=== PATIENT | female | born 1950 | race Caucasian/White ===

== ENCOUNTER 2016-04-20 00:26 | Emergency (ER) | payer OTHER ==
--- NOTE | 2016-04-20 00:28 | PDOC ---
History of Present Illness - History of Present Illness Initial Comments: 04/20/16 00:52 Patient is a 65 year old female with significant medical hx of HTN and diabetes who is presenting to the ED with chronic left shoulder pain. Patient states she' s had chronic left shoulder pain for years that's been diagnosed as tendonitis; she is schedule for surgery this upcoming at [facility]. Her pain radiates from her left shoulder down her left arm. The patient reports she stopped taking her pain medication because they were no longer providing relief. She came to the ED tonight for pain management. Surgical Hx: 2 knee replacements, appendectomy, left mastectomy - General Stated Complaint: L SHOULDER PAIN Time Seen by Provider: 04/20/16 00:28 Past History - Past Medical History Allergies/Adverse Reactions: Allergies Allergy/AdvReac Type Severity Reaction Status Date / Time No Known Allergies Allergy Verified 04/20/16 00:41 Home Medications: Ambulatory Orders Metoprolol Succinate [Toprol Xl] 25 mg PO DAILY 04/20/16 Sitagliptin Phosphate [Januvia] 0 mg PO DAILY 04/20/16 Review of Systems - Review of Systems Comments:: 04/20/16 00:55 CONSTITUTIONAL: Absent: fever, chills, diaphoresis, generalized weakness, malaise, loss of appetite HEENT: Absent: rhinorrhea, nasal congestion, throat pain, throat swelling, difficulty swallowing, mouth swelling, ear pain, eye pain, visual changes CARDIOVASCULAR: Absent: chest pain, syncope, palpitations, irregular heart rate, lightheadedness , peripheral edema RESPIRATORY: Absent: cough, shortness of breath, dyspnea with exertion, orthopnea, wheezing, stridor, hemoptysis GASTROINTESTINAL: Absent: abdominal pain, abdominal distension, nausea, vomiting, diarrhea, constipation, melena, hematochezia GENITOURINARY: Absent: dysuria, frequency, urgency, hesitancy, hematuria, flank pain, genital pain MUSCULOSKELETAL: Present: left shoulder pain Absent: myalgia, arthralgia, joint swelling SKIN: Absent: rash, itching, pallor HEMATOLOGIC/IMMUNOLOGIC: Absent: easy bleeding, easy bruising, lymphadenopathy, frequent infections ENDOCRINE: Absent: unexplained weight gain, unexplained weight loss, heat intolerance, cold intolerance NEUROLOGIC: Absent: headache, focal weakness or paresthesia, dizziness, unsteady gait, seizure, mental status changes, bladder or bowel incontinence. PSYCHIATRIC: Absent: anxiety, depression, suicidal or homicidal ideation, hallucinations *Physical Exam - Vital Signs Last Vital Signs Temp Pulse Resp BP Pulse Ox 98.7 F 75 18 145/79 100 04/20/16 00:38 04/20/16 00:38 04/20/16 00:38 04/20/16 00:38 04/20/16 00:38 - Physical Exam Comments: 04/20/16 00:56 GENERAL: Well developed, well nourished. Awake and alert. No acute distress. HEENT: Normocephalic, atraumatic. PERRLA, EOMI. No conjunctival pallor. Sclera are non- icteric. Moist mucous membranes. Oropharynx is clear. NECK: Supple. Full ROM. No JVD. Carotid pulses 2+ and symmetric, without bruits. No thyromegaly. No lymphadenopathy. CARDIOVASCULAR: Regular rate and rhythm. No murmurs, rubs, or gallops. Distal pulses are 2+ and symmetric. PULMONARY: No evidence of respiratory distress. Lungs clear to auscultation bilaterally. No wheezing, rales or rhonchi. ABDOMINAL: Soft. Non-tender. Non-distended. No rebound or guarding. No organomegaly. Normoactive bowel sounds. MUSCULOSKELETAL: Chronic left shoulder tenderness, exquisitely tender at the glenoid fossa. No CVA tenderness. EXTREMITIES: No cyanosis. No clubbing. No edema. No calf tenderness. SKIN: Warm and dry. Normal capillary refill. No rashes. No jaundice. NEUROLOGICAL: Alert, awake, appropriate. Cranial nerves 2-12 intact. Normal speech. Gait is normal without ataxia. PSYCHIATRIC: Cooperative. Good eye contact. Appropriate mood and affect. ED Treatment Course - Medications Given in the ED: ED Medications Discontinued Medications Generic Name Dose Route Start Last Admin Trade Name Freq PRN Reason Stop Dose Admin Ibuprofen 600 mg 04/20/16 00:35 04/20/16 00:48 Motrin - PO 04/20/16 00:36 600 mg ONCE ONE Administration Oxycodone/Acetaminophen 1 combo 04/20/16 00:36 04/20/16 00:48 Percocet 5/325 - PO 04/20/16 00:37 1 combo ONCE ONE Administration *DC/Admit/Observation/Transfer - Attestations Scribe Attestion: 04/20/16 00:58 Documentation prepared by Desiree Gaspar, acting as medical delivery driver for Sherrie Sanchez MD. Diagnosis at time of Disposition: Chronic left shoulder pain - Discharge Dispostion Disposition: HOME Condition at time of disposition: Stable - Patient Instructions Printed Discharge Instructions: DI for Shoulder Pain Additional Instructions: Please keep your appointment with your surgeon this week
[2016-04-20] MEDS ORDERED: IBUPROFEN 600 MG TABLET (FP) PO ONE ×2 (00:35→00:44)
[2016-04-20] MEDS ORDERED: OXYCODONE/APAP 5/325MG COMBO TABLET PO ONE (00:36)
[2016-04-20] MEDS ORDERED: KETOROLAC TROMETHAMINE 60 MG/2 ML VIAL IM ONE (00:38)
[2016-04-20] MEDS ORDERED: OXYCODONE/APAP 5/325MG COMBO TABLET ONE (00:43)
[2016-04-20 00:56] VITALS: BP 145/79; PULSE 75; TEMP 98.7; BMI 32.3
== END 2016-04-20 02:03 | disposition home or self-care (01) ==
LOC: JER 00:26
DX: M25.512 Pain in left shoulder (principal); I10 Essential (primary) hypertension; E11.9 Type 2 diabetes mellitus without complications; Z79.84 Long term (current) use of oral hypoglycemic drugs
CPT/HCPCS: 99281-25

== ENCOUNTER 2018-10-20 19:03 | Observation (INO) | payer OTHER ==
[2018-10-20 19:51] VITALS: BMI 32.8
[2018-10-20] MEDS ORDERED: ACETAMINOPHEN 1000 MG/100 ML VIAL (NON FORMULARY) IVPB ONE (21:51)
[2018-10-20] MEDS ORDERED: ACETAMINOPHEN INJECTION 100 ML IVPB ONE (22:03)
[2018-10-20 22:19] LABS: BASO % 0.7 % (0-2.0); EOS % 1.6 % (0-4.5); HEMATOCRIT 33.8 % (32.4-45.2); HEMOGLOBIN 11.3 GM/dL (10.7-15.3); LYMPH % 39.9 % (8-40); MCH 31.3 pg (25.7-33.7); MCHC 33.4 g/dl (32.0-36.0); MEAN CELL VOLUME 93.8 fl (80-96); MEAN PLT VOLUME 10.9 fl (7.5-11.1); MONO % 8.7 % (3.8-10.2); NEUT % 49.1 % (42.8-82.8); PLATELET COUNT 218 K/MM3 (134-434); RDW 13.6 % (11.6-15.6)
[2018-10-20 22:50] LABS: ALBUMIN 3.7 g/dl (3.4-5.0); ALK PHOS 88 U/L (45-117); ANION GAP 4 MMOL/L (8-16); BILIRUBIN,TOTAL 0.5 mg/dL (0.2-1); BLOOD UREA NITROGEN 19.2 mg/dL (7-18); CALCIUM 9.3 mg/dL (8.5-10.1); CHLORIDE 111 mmol/L (98-107); CO2 28 mmol/L (21-32); CREATININE 1.1 mg/dL (0.55-1.3); GLUCOSE,RANDOM 106 mg/dL (74-106); POTASSIUM 4.6 mmol/L (3.5-5.1); SGOT/AST 42 U/L (15-37); SGPT/ALT 56 U/L (13-61); SODIUM 142 mmol/L (136-145); TOT PROT 6.9 g/dl (6.4-8.2)
--- NOTE | 2018-10-20 23:07 | PDOC ---
Documentation entered by Shawna Bird SCRIBE, acting as scribe for Jayne Farris MD. Jayne Farris MD: This documentation has been prepared by the Marge silverio Xhesika, SCRIBE, under my direction and personally reviewed by me in its entirety. I confirm that the documentation accurately reflects all work, treatment, procedures, and medical decision making performed by me. History of Present Illness - General Chief Complaint: Shortness of Breath Stated Complaint: EMP Time Seen by Provider: 10/20/18 21:33 History Source: Patient Exam Limitations: No Limitations, Language Barrier (romanian speaking ) - History of Present Illness Initial Comments: 10/20/18 22:22 The patient is a 68 year old female, Bahamian speaking, with a significant medical history of HTN and diabetes who present to the ED via EMS with R sided chest pain associated with SOB. The patient describes her chest pain as severe pain that prevents her from breathing. The patient notes she endorses R shoulder pain worsened with exertion. The patient denies headache and dizziness. Denies fever, chills, nausea, vomiting, diarrhea and constipation. Denies dysuria, frequency, urgency and hematuria. Allergies: NKA PCP: Elgin Boykin Past History - Past Medical History Allergies/Adverse Reactions: Allergies Allergy/AdvReac Type Severity Reaction Status Date / Time No Known Allergies Allergy Verified 04/20/16 00:41 Home Medications: Ambulatory Orders Metoprolol Succinate [Toprol Xl] 25 mg PO DAILY 04/20/16 Sitagliptin Phosphate [Januvia] 0 mg PO DAILY 04/20/16 Diabetes: Yes HTN: Yes - Suicide/Smoking/Psychosocial Hx Smoking History: Never smoked Have you smoked in the past 12 months: No Information on smoking cessation initiated: No Hx Alcohol Use: No Drug/Substance Use Hx: No Substance Use Type: None Review of Systems - Review of Systems Able to Perform ROS?: Yes Comments:: 10/20/18 22:22 GENERAL/CONSTITUTIONAL: No fever or chills. No weakness. HEAD, EYES, EARS, NOSE AND THROAT: No change in vision. No ear pain or discharge. No sore throat. CARDIOVASCULAR: (+)chest pain. (+) shortness of breath. RESPIRATORY: No cough, wheezing, or hemoptysis. GASTROINTESTINAL: No nausea, vomiting, diarrhea or constipation. GENITOURINARY: No dysuria, frequency, or change in urination. MUSCULOSKELETAL:(+) R shoulder pain. No joint or muscle swelling. No neck or back pain. SKIN: No rash NEUROLOGIC: No headache, vertigo, loss of consciousness, or change in strength/ sensation. ENDOCRINE: No increased thirst. No abnormal weight change. HEMATOLOGIC/LYMPHATIC: No anemia, easy bleeding, or history of blood clots. ALLERGIC/IMMUNOLOGIC: No hives or skin allergy. *Physical Exam - Vital Signs Last Vital Signs Temp Pulse Resp BP Pulse Ox 98.2 F 78 20 146/83 95 10/20/18 19:48 10/20/18 19:48 10/20/18 19:48 10/20/18 19:48 10/20/18 19:48 - Physical Exam Comments: 10/20/18 22:23 GENERAL: Awake, alert, and fully oriented, in no acute distress HEAD: No signs of trauma EYES: PERRLA, EOMI, sclera anicteric, conjunctiva clear ENT: Auricles normal inspection, hearing grossly normal, nares patent, oropharynx clear without exudates. Moist mucosa NECK: Normal ROM, supple, no lymphadenopathy, JVD, or masses LUNGS: Breath sounds equal, clear to auscultation bilaterally. No wheezes, and no crackles HEART: Regular rate and rhythm, normal S1 and S2, no murmurs, rubs or gallops ABDOMEN: Soft, nontender, normoactive bowel sounds. No guarding, no rebound. No masses EXTREMITIES: (+) pain with limited ROM. (+)Tenderness without deformity of the R shoulder. no edema. No clubbing or cyanosis. No cords, erythema. NEUROLOGICAL: Cranial nerves II through XII grossly intact. SKIN: Warm, Dry, normal turgor, no rashes or lesions noted. ED Treatment Course - LABORATORY CBC & Chemistry Diagram: 10/20/18 22:00 10/20/18 22:00 - ADDITIONAL ORDERS Additional order review: Laboratory Results 10/20/18 22:00 Sodium 142 Potassium 4.6 Chloride 111 H Carbon Dioxide 28 Anion Gap 4 L BUN 19.2 H Creatinine 1.1 Est GFR (CKD-EPI)AfAm 59.32 Est GFR (CKD-EPI)NonAf 51.18 Random Glucose 106 Calcium 9.3 Total Bilirubin 0.5 AST 42 H ALT 56 Alkaline Phosphatase 88 Creatine Kinase 207 H Troponin I < 0.02 Total Protein 6.9 Albumin 3.7 10/20/18 22:00 RBC 3.60 MCV 93.8 MCHC 33.4 RDW 13.6 MPV 10.9 Neutrophils % 49.1 Lymphocytes % 39.9 Monocytes % 8.7 Eosinophils % 1.6 Basophils % 0.7 - RADIOLOGY Radiology Studies Ordered: Category Date Time Status CHEST PA & LAT [RAD] Stat Radiology 10/20/18 21:52 Ordered SHOULDER-RIGHT [RAD] Stat Radiology 10/20/18 21:52 Ordered - Medications Given in the ED: ED Medications Discontinued Medications Generic Name Dose Route Start Last Admin Trade Name Freq PRN Reason Stop Dose Admin Acetaminophen 1,000 mg 10/20/18 21:51 10/20/18 22:06 Ofirmev Injection - IVPB 10/20/18 21:52 1,000 mg ONCE ONE Administration Medical Decision Making - Medical Decision Making 10/20/18 23:02 pt presents to the ED complaining of R shoulder pain and chest pain relieved by nitro and accompanied by shortness of breath. + flattened T waves in the lateral leads. HEART score of at least 5. Will admit for r/o IL if labs are negative. *DC/Admit/Observation/Transfer Diagnosis at time of Disposition: Chest pain Qualifiers: Chest pain type: other chest pain Qualified Code(s): R07.89 - Other chest pain ; R07.8 - Other chest pain - Discharge Dispostion Condition at time of disposition: Good Decision to Admit order: Yes - Referrals Referrals: Elgin Henderson MD [Primary Care Provider] - - Patient Instructions - Post Discharge Activity
[2018-10-21] MEDS ORDERED: ACETAMINOPHEN 325 MG TABLET (FP) PO PRN (00:37)
--- NOTE | 2018-10-21 02:51 | HP ---
CHIEF COMPLAINT: Chest Pain PCP: Elgin Boykin HISTORY OF PRESENT ILLNESS: 68 y/o F with PMHx of HTN, DM presents with right sided chest pain. Patient is primarily german speaking, thus the [employer] ([employer] knitting machine fixer head was used ([employer] [id number]). Patient says she had sudden onset right sided chest pain at 5pm yesterday evening. She describes it as a nonreproducible, nonpositional 6/10 sharp pain over the right chest that radiates to the right shoulder. She has had chronic shoulder pain from previous operation and says the pain today is different in the same area but more intense prompting her to alert EMS. She was given ASA and SL Nitro in the ED with which her chest pain improved however the shoulder pain remained. Additionally, the pain prevents her from inhalation and is associated with SOB, dizziness and nausea. Denies any recent trauma or rash to the area. Denies any recent fevers, chills, vomiting, diarrhea, constipation , dysuria. Recent Travel: Denies PAST MEDICAL HISTORY: As above PAST SURGICAL HISTORY: Right shoulder tendon repair (@ [facility], ?2017) Social History: Smoking: Denies Alcohol: Denies Drugs: Denies Family History: Allergies No Known Allergies Allergy (Verified 04/20/16 00:41) HOME MEDICATIONS: Home Medications Medication Instructions Recorded Metoprolol Succinate [Toprol Xl] 25 mg PO DAILY 04/20/16 Sitagliptin Phosphate [Januvia] 0 mg PO DAILY 04/20/16 REVIEW OF SYSTEMS As per HPI PHYSICAL EXAMINATION Vital Signs - 24 hr 10/20/18 19:48 Temperature 98.2 F Pulse Rate 78 Respiratory 20 Rate Blood Pressure 146/83 O2 Sat by Pulse 95 Oximetry (%) GENERAL: A&Ox3, NAD HEAD: NCAT EYES: PERRL, EOMI EARS, NOSE, THROAT: Moist mucous membranes NECK: Supple LUNGS: Clear to auscultation bilaterally. No wheezes, no crackles. HEART: Regular rate and rhythm, normal S1 and S2 without murmur ABDOMEN: Soft, nontender, not distended, + bowel sounds, no guarding MUSCULOSKELETAL: No CVA tenderness. EXTREMITIES: No peripheral edema. NEUROLOGICAL: Cranial nerves II-XII intact. Normal speech. SKIN: Warm, dry Laboratory Results - last 24 hr 10/20/18 10/20/18 22:00 22:00 WBC 13.0 H RBC 3.60 Hgb 11.3 Hct 33.8 MCV 93.8 MCH 31.3 MCHC 33.4 RDW 13.6 Plt Count 218 MPV 10.9 Absolute Neuts (auto) 6.4 Neutrophils % 49.1 Lymphocytes % 39.9 Monocytes % 8.7 Eosinophils % 1.6 Basophils % 0.7 Nucleated RBC % 0 Sodium 142 Potassium 4.6 Chloride 111 H Carbon Dioxide 28 Anion Gap 4 L BUN 19.2 H Creatinine 1.1 Est GFR (CKD-EPI)AfAm 59.32 Est GFR (CKD-EPI)NonAf 51.18 Random Glucose 106 Calcium 9.3 Total Bilirubin 0.5 AST 42 H ALT 56 Alkaline Phosphatase 88 Creatine Kinase 207 H Creatine Kinase Index 2.3 CK-MB (CK-2) 4.8 H Troponin I < 0.02 Total Protein 6.9 Albumin 3.7 Active Medications Acetaminophen (Tylenol -) 650 mg PO Q4H PRN PRN Reason: pain Heparin Sodium (Porcine) (Heparin -) 5,000 unit SQ TID YARELIS ASSESSMENT/PLAN: 68 y/o F with PMHx of HTN, DM presents with right sided chest pain. #Chest Pain -Likely MSK however improved with SL Nitro, must R/O ACS -Given ASA and SL nitro in ED -Trop < 0.02 x2 -CXR without an obvious infiltrate, effusion -Trend Trops, EKG -Check Echo, TSH, BNP, A1c, Lipid Panel -Cardiology (Dr. Bronson) consulted -Tele monitoring #Leukocytosis -Likely reactive, Trend -Will Hold ABx given AFebrile, Nontoxic appearing #DM -ISS BGMs ACHS -Check A1c #FEN -No Standing fluids -Lytes WNL -NA Controlled diet #PPx -DVT: Heparin Dispo: Tele Obs Visit type - Emergency Visit Emergency Visit: Yes ED Registration Date: 10/21/18 Care time: The patient presented to the Emergency Department on the above date and was hospitalized for further evaluation of their emergent condition. - New Patient This patient is new to me today: Yes Date on this admission: 10/21/18 - Critical Care Critical Care patient: No ATTENDING PHYSICIAN STATEMENT I saw and evaluated the patient. I reviewed the resident's note and discussed the case with the resident. I agree with the resident's findings and plan as documented. SUBJECTIVE: OBJECTIVE: ASSESSMENT AND PLAN:
[2018-10-21] MEDS ORDERED: HEPARIN NA (PORCINE) 5,000 UNITS/ML 1ML VIAL SQ SCH (06:00)
[2018-10-21] MEDS ORDERED: HEPARIN NA (PORCINE) 5,000 UNITS/ML 1ML VIAL ONE (06:18)
[2018-10-21] MEDS ORDERED: INSULIN (NOVOLOG) ASPART 100 UNITS/ML 10ML VIAL ONE (06:19)
[2018-10-21] MEDS: INSULIN SLIDING SCALE (NOVOLOG) 1 VIAL SQ SCH ×2 (06:36→11:24)
[2018-10-21 07:37] LABS: CHOLESTEROL 121 mg/dL (50-200); HDL CHOLESTEROL 40 mg/dL (40-60); TRIGLYCERIDES 75 mg/dL (0-150)
--- NOTE | 2018-10-21 07:39 | PN ---
Teaching Attending Note Name of Resident: Ivette Lassiter ATTENDING PHYSICIAN STATEMENT I saw and evaluated the patient. I reviewed the resident's note and discussed the case with the resident. I agree with the resident's findings and plan as documented. VS, labs, imaging reviewed NAD, AAO, resting comfortably in bed NC AT EOMI PERRLA RRR s1/2 Lungs CTAB, w/ sym exp R-shoulder with pain to palpation, limited ROM 2/2 pain, crepitus on passive motion. CN2-12 wnl, no fnd Normal mood, appropriate behavior EKG reviewed Echo pending ASSESSMENT AND PLAN: Patient presents with atypical CP worse with activity associated with her R- shoulder; she also had SOB accompanying the CP which is new for her. No prior CV diagnostics and doesn't regularly follow with cardiology # Atypical CP r/o ACS # R-shoulder pain s/p repair, records pending # Obesity (BMI 32) # DM Telemetry, trend troponin (negative thus far), repeat EKG, ASA 81mg continued. Check lipids/A1c/TSH; calculate ASCVD score. Verify and continue home meds. Consult cardiology for eval; atypical though with risk factors and SOB which is new. Appreciate expert opinion from Dr. Jacobson. Hemodynamics stable. Check echo for WMAs. Full Code
--- NOTE | 2018-10-21 09:41 | EKG ---
Test Reason : Blood Pressure : / mmHG Vent. Rate : 056 BPM Atrial Rate : 056 BPM P-R Int : 224 ms QRS Dur : 092 ms QT Int : 448 ms P-R-T Axes : 029 014 011 degrees QTc Int : 432 ms SINUS BRADYCARDIA WITH 1ST DEGREE A-V BLOCK LOW VOLTAGE QRS BORDERLINE ECG WHEN COMPARED WITH ECG OF 20-OCT-2018 19:27, MINIMAL CRITERIA FOR ANTERIOR INFARCT ARE NO LONGER PRESENT Confirmed by REJI FONSECA, MEL ([id number]) on 10/21/2018 9:41:23 AM Referred By: Confirmed By:MEL MENDOZA MD
--- NOTE | 2018-10-21 10:29 | DS ---
Physical Examination Vital Signs: Vital Signs Temperature 36.7 C 10/21/18 07:50 Pulse Rate 72 10/21/18 07:50 Respiratory Rate 16 10/21/18 07:50 Blood Pressure 137/93 10/21/18 07:50 O2 Sat by Pulse Oximetry (%) 97 10/21/18 07:50 Constitutional: Yes: Well Nourished, No Distress, Calm Cardiovascular: Yes: Regular Rate and Rhythm. No: Gallop, Murmur, Rub Respiratory: Yes: Regular, CTA Bilaterally. No: Rales, Rhonchi, Wheezes Gastrointestinal: Yes: Normal Bowel Sounds, Soft. No: Distention, Tenderness Extremities: Yes: WNL Edema: No Labs: CBC, BMP 10/20/18 22:00 10/20/18 22:00 Discharge Summary Reason For Visit: CHEST PAIN Current Active Problems Chest pain (Acute) Hospital Course: Ms Stevens is a pleasant 68 year old female who came in for R shoulder pain x1 year. She was seen in the ED and with her risk factors she was admitted under observation for possible ACS. Upon seeing in the morning she said that her R shoulder has been hurting for a year and that it hurts with movement. She denied chest pain to me at this time. EKG was performed and reviewed by Dr Jacobson and stated no signs of ACS. She was monitored on telemetry and remained stable. Cardiac enzymes x3 were sent and negative. She was seen by Dr Jacobson and cleared for discharge. She was instructed to follow up with her PCP for further investigation and treatment of her chronic right shoulder pain. She is safe for discharge. 34 minutes spent in preparation of this discharge Condition: Good - Instructions Diet, Activity, Other Instructions: resume previous diet and activity Referrals: Elgin Henderson MD [Primary Care Provider] - Disposition: HOME - Home Medications Comprehensive Discharge Medication List: Ambulatory Orders Metoprolol Succinate [Toprol Xl] 25 mg PO DAILY 04/20/16 Sitagliptin Phosphate [Januvia] 0 mg PO DAILY 04/20/16
[2018-10-21 11:26] VITALS: TEMP 98.1
--- NOTE | 2018-10-21 11:33 | CON.CARD ---
Cardiology Consult (text) - Consultation Consultation Note: cc: cp hpi: 68 f hx htn, dm here with cp. For months has had right shoulder pain that radiates to right chest. Sharp pain. Has been chronic but decided to come to ER for eval. Pain causes deep breaths to be painful. No exertional sxs. No angina, palps dizzy loc pnd orthopnea le edema. pmh: per hpi psh: shoulder surgery social: no tob fam: no premature cad, scd ros: per hpi; all others nl meds: Home Medications Medication Instructions Recorded Metoprolol Succinate [Toprol Xl] 25 mg PO DAILY 04/20/16 Sitagliptin Phosphate [Januvia] 0 mg PO DAILY 04/20/16 pe: Vital Signs Period Temp Pulse Resp BP Sys/Frank Pulse Ox Last 24 Hr 97.7 F-98.2 F 60-78 15-20 130-170/69-99 95-99 nad no jvd rrr s1s2 no mrg cta bl nl eff aao3 no le e/c/c abd nt nd pos bs no jaundice diaphoresis pos dp pt no carotid bruits +chest wall tenderness/shoulder tenderness Laboratory Last Values WBC 13.0 K/mm3 (4.0-10.0) H 10/20/18 22:00 RBC 3.60 M/mm3 (3.60-5.2) 10/20/18 22:00 Hgb 11.3 GM/dL (10.7-15.3) 10/20/18 22:00 Hct 33.8 % (32.4-45.2) 10/20/18 22:00 MCV 93.8 fl (80-96) 10/20/18 22:00 MCH 31.3 pg (25.7-33.7) 10/20/18 22:00 MCHC 33.4 g/dl (32.0-36.0) 10/20/18 22:00 RDW 13.6 % (11.6-15.6) 10/20/18 22:00 Plt Count 218 K/MM3 (134-434) 10/20/18 22:00 MPV 10.9 fl (7.5-11.1) 10/20/18 22:00 Absolute Neuts (auto) 6.4 K/mm3 (1.5-8.0) 10/20/18 22:00 Neutrophils % 49.1 % (42.8-82.8) 10/20/18 22:00 Lymphocytes % 39.9 % (8-40) 10/20/18 22:00 Monocytes % 8.7 % (3.8-10.2) 10/20/18 22:00 Eosinophils % 1.6 % (0-4.5) 10/20/18 22:00 Basophils % 0.7 % (0-2.0) 10/20/18 22:00 Nucleated RBC % 0 % (0-0) 10/20/18 22:00 Sodium 142 mmol/L (136-145) 10/20/18 22:00 Potassium 4.6 mmol/L (3.5-5.1) 10/20/18 22:00 Chloride 111 mmol/L (98-107) H 10/20/18 22:00 Carbon Dioxide 28 mmol/L (21-32) 10/20/18 22:00 Anion Gap 4 MMOL/L (8-16) L 10/20/18 22:00 BUN 19.2 mg/dL (7-18) H 10/20/18 22:00 Creatinine 1.1 mg/dL (0.55-1.3) 10/20/18 22:00 Est GFR (CKD-EPI)AfAm 59.32 10/20/18 22:00 Est GFR (CKD-EPI)NonAf 51.18 10/20/18 22:00 Random Glucose 106 mg/dL (74-106) 10/20/18 22:00 Hemoglobin A1c % 6.8 % (4.2-6.3) H 10/21/18 06:00 Calcium 9.3 mg/dL (8.5-10.1) 10/20/18 22:00 Total Bilirubin 0.5 mg/dL (0.2-1) 10/20/18 22:00 AST 42 U/L (15-37) H 10/20/18 22:00 ALT 56 U/L (13-61) 10/20/18 22:00 Alkaline Phosphatase 88 U/L (45-117) 10/20/18 22:00 Creatine Kinase 207 U/L (26-192) H 10/20/18 22:00 Creatine Kinase Index 2.3 % (0.0-5.0) 10/20/18 22:00 CK-MB (CK-2) 4.8 ng/mL (0.5-3.6) H 10/20/18 22:00 Troponin I < 0.02 ng/ml (0.00-0.05) 10/21/18 06:00 Total Protein 6.9 g/dl (6.4-8.2) 10/20/18 22:00 Albumin 3.7 g/dl (3.4-5.0) 10/20/18 22:00 Triglycerides 75 mg/dL (0-150) 10/21/18 06:00 Cholesterol 121 mg/dL (50-200) 10/21/18 06:00 Total LDL Cholesterol 75 mg/dL (5-100) 10/21/18 06:00 HDL Cholesterol 40 mg/dL (40-60) 10/21/18 06:00 cxr: clear lungs ecg: sr, 1st avb, nl qtc, no ischemic changes a/p: 68 f hx htn, dm here with cp. cp: -atypical cp, seems msk -no signs acs -ce's negative, ecg benign htn: -cont home bb dm: -cont home po med cardiac cook stable for dc, pt instructed to f/u 1-2 weeks in office.
[2018-10-21 14:51] VITALS: BP 145/82; PULSE 66
--- NOTE | 2018-10-22 15:28 | EKG ---
Test Reason : Blood Pressure : / mmHG Vent. Rate : 079 BPM Atrial Rate : 079 BPM P-R Int : 204 ms QRS Dur : 094 ms QT Int : 384 ms P-R-T Axes : 000 -07 004 degrees QTc Int : 440 ms POOR DATA QUALITY, INTERPRETATION MAY BE ADVERSELY AFFECTED NORMAL SINUS RHYTHM LOW VOLTAGE QRS CANNOT RULE OUT ANTERIOR INFARCT , AGE UNDETERMINED ABNORMAL ECG NO PREVIOUS ECGS AVAILABLE Confirmed by REJI FONSECA, MEL ([id number]) on 10/22/2018 3:28:04 PM Referred By: Confirmed By:MEL MENDOZA MD
== END 2018-10-21 14:34 | disposition home or self-care (01) ==
LOC: JER 19:03 → JERBED 10-21 01:28
PROVIDERS: ADMIT Internal Medicine; ATTEND Internal Medicine
PROC: 3E033NZ Introduction of Analgesics, Hypnotics, Sedatives into Peripheral Vein, Percutaneous Approach (ICD-10-PCS; principal; 2018-10-21)
PROC: 3E013GC Introduction of Other Therapeutic Substance into Subcutaneous Tissue, Percutaneous Approach (ICD-10-PCS; 2018-10-21)
DX: R07.89 Other chest pain (principal); D72.829 Elevated white blood cell count, unspecified; I10 Essential (primary) hypertension; E11.9 Type 2 diabetes mellitus without complications; E66.9 Obesity, unspecified; Z68.32 Body mass index [BMI] 32.0-32.9, adult
CPT/HCPCS: 36415; 71046-TC-FY; 73030-TC-RT-FY; 80053; 80061; 82550; 82553; 82962; 83036; 83721; 84484; 85025; 93005; 93010; 96372; 96374; 99284-25; G0378; J0131; J1644

== ENCOUNTER 2019-10-20 11:12 | Emergency (ER) | payer OTHER ==
[2019-10-20 11:28] VITALS: BP 151/71; PULSE 72; TEMP 98.2; BMI 32.1
--- NOTE | 2019-10-20 13:26 | PDOC ---
History of Present Illness - General Chief Complaint: Pain Stated Complaint: RT HIP PAIN Time Seen by Provider: 10/20/19 11:52 History Source: Patient, [employer] - History of Present Illness Initial Comments: 69yo female w/PMH HTN, DM, right shoulder pain, and two ankle surgeries (~2018) who presents with acute on chronic lower left back and leg pain.She states the pain began around 6 months ago. She states she was admitted to [facility], [place] around that time for the pain, they did some imaging, but she did not know what the diagnosis was, so she left AMA. Not able to see PCP because of Covid. The pain is intermittent, no association with exertion or rest. Denies saddle anesthesia, incontinence, retention, f/c. Denies leg swelling or erythema. PMH/PSH: as in HPI Meds: januvia and unspecified BP med Allergies: none Tob: denies Etoh: denies Rec drugs: denies PCP: Kb FARFAN GENERAL/CONSTITUTIONAL: No fever or chills. No weakness. HEAD, EYES, EARS, NOSE AND THROAT: No change in vision. No ear pain or discharge. No sore throat. CARDIOVASCULAR: No chest pain or shortness of breath RESPIRATORY: No cough, wheezing, or hemoptysis. GASTROINTESTINAL: No nausea, vomiting, diarrhea or constipation. GENITOURINARY: No dysuria, frequency, or change in urination. MUSCULOSKELETAL: lower back and leg pain SKIN: No rash NEUROLOGIC: No headache, vertigo, loss of consciousness, or change in strength/sensation. ENDOCRINE: No increased thirst. No abnormal weight change HEMATOLOGIC/LYMPHATIC: No anemia, easy bleeding, or history of blood clots. ALLERGIC/IMMUNOLOGIC: No hives or skin allergy. PE GENERAL: Awake, alert, and fully oriented, in no acute distress HEAD: No signs of trauma, normocephalic, atraumatic EYES: PERRLA, EOMI, sclera anicteric, conjunctiva clear ENT: hearing grossly normal, nares patent, oropharynx clear without exudates. Moist mucosa NECK: Normal ROM, supple, no lymphadenopathy, JVD, or masses LUNGS: No distress, speaks full sentences, clear to auscultation bilaterally HEART: Regular rate and rhythm, normal S1 and S2, no murmurs, rubs or gallops, peripheral pulses normal and equal bilaterally. ABDOMEN: Soft, nontender, normoactive bowel sounds. No guarding, no rebound. No masses EXTREMITIES : Normal inspection, Normal range of motion, no edema. No clubbing or cyanosis. Diffusely tender to palpation in paraspinal and b/l upper legs. NEUROLOGICAL: Cranial nerves II through XII grossly intact. Normal speech, limping gait, no focal sensorimotor deficits SKIN: Warm, Dry, normal turgor, no rashes or lesions noted Assessment and Plan 69yo female w/PMH HTN, DM, right shoulder pain, and two ankle surgeries (~2018) who presents with acute on chronic lower left back and leg pain. No alarm signs or symptoms or concern for cord compression, epidural abscess, DVT. -percocet x1 in ED -reassurance -given a cane -instructions to f/u with PCP Patient stable for discharge. Given follow up instructions and strict return precautions. Patient expressed understanding and agree to plan Past History - Medical History Allergies/Adverse Reactions: Allergies Allergy/AdvReac Type Severity Reaction Status Date / Time No Known Allergies Allergy Verified 04/20/16 00:41 Home Medications: Ambulatory Orders Metoprolol Succinate [Toprol Xl] 25 mg PO DAILY 04/20/16 Sitagliptin Phosphate [Januvia] 0 mg PO DAILY 04/20/16 COPD: No Diabetes: Yes HTN: Yes - Immunization History Td Vaccination: Yes TDAP Vaccination: Yes Immunization Up to Date: Yes - Psycho-Social/Smoking History Smoking History: Never smoked Have you smoked in the past 12 months: No - Substance Abuse Hx (Audit-C & DAST Scrn) How often the patient has a drink containing alcohol: Never Score: In Men: 4 or > Positive; In Women: 3 or > Positive: 0 Screen Result (Pos requires Nsg. Audit-10AR): Negative In the last yr the pt used illegal drug/Rx for NonMed reason: No Score: Yes response is considered Positive: 0 Screen Result (Positive result requires Nsg. DAST-10): Negative *Physical Exam - Vital Signs Last Vital Signs Temp Pulse Resp BP Pulse Ox 98.2 F 72 16 151/71 98 10/20/19 11:23 10/20/19 11:23 10/20/19 11:23 10/20/19 11:23 10/20/19 11:23 ED Treatment Course - Medications Given in the ED: ED Medications Discontinued Medications Generic Name Dose Route Start Last Admin Trade Name Jin PRN Reason Stop Dose Admin Oxycodone/Acetaminophen 1 combo 10/20/19 13:00 10/20/19 13:16 Percocet 5/325 - PO 10/20/19 13:01 1 combo ONCE ONE Administration Discharge - Discharge Information Problems reviewed: Yes Clinical Impression/Diagnosis: Chronic leg pain Chronic low back pain Qualifiers: Back pain laterality: right Condition: Improved Disposition: HOME - Follow up/Referral Referrals: Kb Carreno [Primary Care Provider] - - Patient Discharge Instructions Patient Printed Discharge Instructions: Managing Chronic Low Back Pain, DI for Leg Pain Additional Instructions: Te vieron en el servicio de urgencias por dolor de espalda y piernas. No hay preocupacin por jarred causa emergente del dolor. Chika es un dolor crnico y debe llamar a rehman mdico de atencin primaria, Kb Carreno, para evaluar rehman dolor. Le dieron Percocet en el servicio de urgencias por rehman dolor y un bastn para irse a casa. Cuando vaya a casa, debe guero dos dosis adicionales de Tylenol cada 8 horas, segn sea necesario para el dolor. Llame a rehman mdico o regrese al servicio de urgencias si experimenta un empeoramiento del dolor, fiebre / escalofros, prdida de peso o incontinencia, o cualquier otro motivo. You were seen in the ED for right back and leg pain. There is no concern for an emergent cause of the pain. This is chronic pain and you should call you primary care doctor, Kb Carreno, to evaluate your pain. You were given Percocet in the ED for your pain and a cane to go home with. When you go home, you should take two extra strength Tylenol every 8 hours as needed for pain. Please call your doctor or return to the ED if you experience worsening pain, fever/chills, weight loss, or incontinence, or any other reason. Print Language: OCCITAN - Post Discharge Activity
--- NOTE | 2019-10-20 13:51 | PDOC ---
Attending Attestation - Resident Resident Name: Bassem Mcgowan - HPI HPI: 10/20/19 13:42 Pt presents to the Ed complaining of acute exacerbation of her chronic R LE pain. PAtient has had diffuse RLE pain for the last 5 months. Has had difficulty obtaining follow up from her PCP due to the pandemic. Denies trauma, fever, other concerning symptoms. patient is able to ambulate with a limp. - Physicial Exam PE: 10/20/19 13:51 Agree with resident exam. RLE exam: No deformity, swelling or tenderness. Full ROM at ankle and knee. Patient is ambulatory with slight limp. 10/20/19 14:23 - Medical Decision Making 10/20/19 14:23 Pt presents to the ED complaining of acute exacerbation of her chronic, diffuse RLE pain. Feels improved after percoset in the ED, ambulatory with limp. Will discharge home with tylenol for pain control and cane to assist with ambulation. Will instruct patient to call Dr. Jerome for follow up next week. Discharge - Discharge Information Problems reviewed: Yes Clinical Impression/Diagnosis: Chronic leg pain Chronic low back pain Qualifiers: Back pain laterality: right Condition: Improved Disposition: HOME - Follow up/Referral Referrals: Kb Carreno [Primary Care Provider] - - Patient Discharge Instructions Patient Printed Discharge Instructions: Managing Chronic Low Back Pain, DI for Leg Pain Additional Instructions: Te vieron en el servicio de urgencias por dolor de espalda y piernas. No hay preocupacin por jarred causa emergente del dolor. Chika es un dolor crnico y debe llamar a rehman mdico de atencin primaria, Kb Carreno, para evaluar rehman dolor. Le dieron Percocet en el servicio de urgencias por rehman dolor y un bastn para irse a casa. Cuando vaya a casa, debe guero dos dosis adicionales de Tylenol cada 8 horas, segn sea necesario para el dolor. Llame a rehman mdico o regrese al servicio de urgencias si experimenta un empeoramiento del dolor, fiebre / escalofros, prdida de peso o incontinencia, o cualquier otro motivo. You were seen in the ED for right back and leg pain. There is no concern for an emergent cause of the pain. This is chronic pain and you should call you primary care doctor, Kb Carreno, to evaluate your pain. You were given Percocet in the ED for your pain and a cane to go home with. When you go home, you should take two extra strength Tylenol every 8 hours as needed for pain. Please call your doctor or return to the ED if you experience worsening pain, fever/chills, weight loss, or incontinence, or any other reason. Print Language: CHILEAN - Post Discharge Activity
== END 2019-10-20 13:47 | disposition home or self-care (01) ==
LOC: JER 11:12
DX: M79.604 Pain in right leg (principal)
CPT/HCPCS: 99283-25

== ENCOUNTER 2020-10-15 09:32 | Inpatient (IN) | payer OTHER ==
[2020-10-15] MEDS ORDERED: LIDOCAINE 5% TOPICAL PATCH TP ONE (10:45)
[2020-10-15] MEDS ORDERED: ACETAMINOPHEN 1000 MG/100 ML VIAL (NON FORMULARY) IVPB ONE (10:45)
[2020-10-15] MEDS ORDERED: ACETAMINOPHEN INJECTION 100 ML IVPB ONE (10:50)
[2020-10-15] MEDS ORDERED: LIDOCAINE 5% TOPICAL PATCH ONE (10:51)
[2020-10-15 11:37] LABS: BASO % 0.4 % (0-2.0); EOS % 2.1 % (0-4.5); HEMOGLOBIN 11.6 GM/dL (10.7-15.3); LYMPH % 31.4 % (8-40); MCHC 33.1 g/dl (32.0-36.0); MEAN CELL VOLUME 93.6 fl (80-96); MEAN PLT VOLUME 10.9 fl (7.5-11.1); MONO % 8.6 % (3.8-10.2); NEUT % 57.5 % (42.8-82.8); PLATELET COUNT 291 10^3/uL (134-434); RBC 3.74 M/mm3 (3.60-5.2); RDW 13.9 % (11.6-15.6); WHITE BLOOD COUNT 12.4 K/mm3 (4.0-10.0)
[2020-10-15 11:59] LABS: CHLORIDE 106 mmol/L (98-107); SODIUM 133 mmol/L (136-145)
[2020-10-15 12:01] LABS: CALCIUM 9.4 mg/dL (8.5-10.1)
[2020-10-15 12:02] LABS: ALBUMIN 3.4 g/dl (3.4-5.0); CO2 23 mmol/L (21-32); GLUCOSE,RANDOM 106 mg/dL (74-106)
[2020-10-15 12:05] LABS: CREATININE 0.9 mg/dL (0.55-1.3); SGOT/AST 86 U/L (15-37)
[2020-10-15 12:07] LABS: BILIRUBIN,TOTAL 0.9 mg/dL (0.2-1); TOT PROT 7.9 g/dl (6.4-8.2)
[2020-10-15 12:08] LABS: ALK PHOS 90 U/L (45-117)
[2020-10-15 12:09] LABS: ANION GAP 4 MMOL/L (8-16); SGPT/ALT 51 U/L (13-61)
[2020-10-15 19:21] VITALS: BMI 29.9
[2020-10-15] MEDS: ATORVASTATIN CA 80 MG TABLET (FP) PO SCH (21:23)
[2020-10-15] MEDS: HEPARIN NA (PORCINE) 5,000 UNITS/ML 1ML VIAL SQ SCH (21:24)
[2020-10-15] MEDS: oxyCODONE HCL 5 MG TABLET PO PRN (21:42)
[2020-10-15] MEDS ORDERED: LIDOCAINE PATCH REMOVAL MC SCH (22:00)
[2020-10-16 09:03] LABS: BASO % 0.5 % (0-2.0); HEMATOCRIT 33.7 % (32.4-45.2); HEMOGLOBIN 11.4 GM/dL (10.7-15.3); LYMPH % 27.3 % (8-40); MCH 31.4 pg (25.7-33.7); MCHC 33.7 g/dl (32.0-36.0); MEAN CELL VOLUME 93.1 fl (80-96); MEAN PLT VOLUME 10.5 fl (7.5-11.1); MONO % 7.7 % (3.8-10.2); NEUT % 63.5 % (42.8-82.8); PLATELET COUNT 269 10^3/uL (134-434); RBC 3.62 M/mm3 (3.60-5.2); RDW 13.4 % (11.6-15.6); WHITE BLOOD COUNT 10.6 K/mm3 (4.0-10.0)
[2020-10-16 09:24] LABS: ALBUMIN 3.6 g/dl (3.4-5.0); BLOOD UREA NITROGEN 19.2 mg/dL (7-18)
[2020-10-16 09:28] LABS: CREATININE 0.8 mg/dL (0.55-1.3)
[2020-10-16 09:29] LABS: BILIRUBIN,TOTAL 1.2 mg/dL (0.2-1); TOT PROT 7.3 g/dl (6.4-8.2)
[2020-10-16] MEDS: amLODIPine BESYLATE 5 MG TABLET (FP) PO SCH (09:36)
[2020-10-16] MEDS: PANTOPRAZOLE 40 MG TABLET PO SCH (09:36)
[2020-10-16] MEDS: oxyCODONE HCL 5 MG TABLET PO PRN (09:36)
[2020-10-16] MEDS: LOSARTAN POTASSIUM 50 MG TABLET PO SCH (09:38)
[2020-10-16] MEDS: HEPARIN NA (PORCINE) 5,000 UNITS/ML 1ML VIAL SQ SCH ×2 (09:39→21:43)
[2020-10-16] MEDS: LITHIUM CARBONATE 450 MG TABLET.ER PO SCH ×2 (10:59→12:38)
[2020-10-16] MEDS: PARoxetine HCL 10 MG TABLET PO SCH ×2 (10:59→12:38)
[2020-10-16] MEDS: LIDOCAINE 5% TOPICAL PATCH TP SCH (12:36)
[2020-10-16] MEDS: CYCLOBENZAPRINE HCL 5 MG TABLET PO SCH (12:37)
[2020-10-16] MEDS: KETOROLAC TROMETHAMINE 30 MG/1 ML VIAL IVPUSH SCH ×2 (12:37→17:51)
[2020-10-16] MEDS: INSULIN SLIDING SCALE (NOVOLOG) 1 VIAL SQ SCH ×2 (17:05→22:34)
[2020-10-16] MEDS: LIDOCAINE PATCH REMOVAL MC SCH (21:43)
[2020-10-16] MEDS: ATORVASTATIN CA 80 MG TABLET (FP) PO SCH (21:43)
[2020-10-17] MEDS: KETOROLAC TROMETHAMINE 30 MG/1 ML VIAL IVPUSH SCH ×3 (01:42→18:17)
[2020-10-17] MEDS: INSULIN SLIDING SCALE (NOVOLOG) 1 VIAL SQ SCH ×4 (06:02→23:00)
[2020-10-17] MEDS ORDERED: PT OWN MED DRAWER 7, Y5N ONE (09:39)
[2020-10-17] MEDS: LOSARTAN POTASSIUM 50 MG TABLET PO SCH (10:00)
[2020-10-17] MEDS: HEPARIN NA (PORCINE) 5,000 UNITS/ML 1ML VIAL SQ SCH ×2 (10:00→23:01)
[2020-10-17] MEDS: amLODIPine BESYLATE 5 MG TABLET (FP) PO SCH (10:00)
[2020-10-17] MEDS: LITHIUM CARBONATE 450 MG TABLET.ER PO SCH (10:01)
[2020-10-17] MEDS: CYCLOBENZAPRINE HCL 5 MG TABLET PO SCH (10:01)
[2020-10-17] MEDS: LIDOCAINE 5% TOPICAL PATCH TP SCH (10:01)
[2020-10-17] MEDS: PARoxetine HCL 10 MG TABLET PO SCH (10:01)
[2020-10-17] MEDS: PANTOPRAZOLE 40 MG TABLET PO SCH (10:01)
[2020-10-17] MEDS: ATORVASTATIN CA 80 MG TABLET (FP) PO SCH (23:01)
[2020-10-17] MEDS: LIDOCAINE PATCH REMOVAL MC SCH (23:02)
[2020-10-18] MEDS: KETOROLAC TROMETHAMINE 30 MG/1 ML VIAL IVPUSH SCH ×3 (02:45→18:11)
[2020-10-18] MEDS: INSULIN SLIDING SCALE (NOVOLOG) 1 VIAL SQ SCH ×4 (07:02→21:42)
[2020-10-18] MEDS ORDERED: PT OWN MED DRAWER 7, Y5N ONE ×2 (09:00→17:33)
[2020-10-18] MEDS: LOSARTAN POTASSIUM 50 MG TABLET PO SCH (09:09)
[2020-10-18] MEDS: CYCLOBENZAPRINE HCL 5 MG TABLET PO SCH (09:09)
[2020-10-18] MEDS: PANTOPRAZOLE 40 MG TABLET PO SCH (09:09)
[2020-10-18] MEDS: amLODIPine BESYLATE 5 MG TABLET (FP) PO SCH (09:09)
[2020-10-18] MEDS: HEPARIN NA (PORCINE) 5,000 UNITS/ML 1ML VIAL SQ SCH ×2 (09:10→21:42)
[2020-10-18] MEDS: LIDOCAINE 5% TOPICAL PATCH TP SCH (09:10)
[2020-10-18] MEDS: LITHIUM CARBONATE 450 MG TABLET.ER PO SCH (09:10)
[2020-10-18] MEDS: PARoxetine HCL 10 MG TABLET PO SCH (09:11)
[2020-10-18] MEDS ORDERED: diazePAM 5 MG TABLET PO SCH (11:45)
[2020-10-18] MEDS ORDERED: POLYETHYLENE GLYCOL 3350 119 GM BTL PO ONE (17:51)
[2020-10-18] MEDS: ATORVASTATIN CA 80 MG TABLET (FP) PO SCH (21:42)
[2020-10-18] MEDS: LIDOCAINE PATCH REMOVAL MC SCH (21:42)
[2020-10-19] MEDS: KETOROLAC TROMETHAMINE 30 MG/1 ML VIAL IVPUSH SCH ×3 (01:26→18:10)
[2020-10-19] MEDS: INSULIN SLIDING SCALE (NOVOLOG) 1 VIAL SQ SCH ×4 (05:59→22:06)
[2020-10-19 08:59] LABS: BASO % 0.5 % (0-2.0); EOS % 1.6 % (0-4.5); HEMATOCRIT 36.3 % (32.4-45.2); HEMOGLOBIN 11.6 GM/dL (10.7-15.3); LYMPH % 21.9 % (8-40); MCH 30.4 pg (25.7-33.7); MEAN CELL VOLUME 94.8 fl (80-96); MEAN PLT VOLUME 10.8 fl (7.5-11.1); MONO % 6.7 % (3.8-10.2); NEUT % 69.3 % (42.8-82.8); PLATELET COUNT 278 10^3/uL (134-434); RBC 3.83 M/mm3 (3.60-5.2); RDW 13.5 % (11.6-15.6); WHITE BLOOD COUNT 13.8 K/mm3 (4.0-10.0)
[2020-10-19 09:32] LABS: ALBUMIN 3.6 g/dl (3.4-5.0); BILIRUBIN,TOTAL 1.3 mg/dL (0.2-1); BLOOD UREA NITROGEN 18.5 mg/dL (7-18); CALCIUM 9.7 mg/dL (8.5-10.1); CREATININE 1.2 mg/dL (0.55-1.3); TOT PROT 7.5 g/dl (6.4-8.2)
[2020-10-19] MEDS ORDERED: PT OWN MED DRAWER 7, Y5N ONE (09:36)
[2020-10-19] MEDS: CYCLOBENZAPRINE HCL 5 MG TABLET PO SCH (09:50)
[2020-10-19] MEDS: PANTOPRAZOLE 40 MG TABLET PO SCH (09:50)
[2020-10-19] MEDS: amLODIPine BESYLATE 5 MG TABLET (FP) PO SCH (09:50)
[2020-10-19] MEDS: PARoxetine HCL 10 MG TABLET PO SCH (09:50)
[2020-10-19] MEDS: LITHIUM CARBONATE 450 MG TABLET.ER PO SCH (09:50)
[2020-10-19] MEDS: LOSARTAN POTASSIUM 50 MG TABLET PO SCH (09:50)
[2020-10-19] MEDS: LIDOCAINE 5% TOPICAL PATCH TP SCH (09:50)
[2020-10-19] MEDS: HEPARIN NA (PORCINE) 5,000 UNITS/ML 1ML VIAL SQ SCH ×2 (09:52→22:00)
[2020-10-19] MEDS: GABAPENTIN 100 MG CAPSULE PO SCH ×2 (13:13→22:00)
[2020-10-19] MEDS: ATORVASTATIN CA 80 MG TABLET (FP) PO SCH (22:00)
[2020-10-19] MEDS: LIDOCAINE PATCH REMOVAL MC SCH (22:01)
[2020-10-20] MEDS: KETOROLAC TROMETHAMINE 30 MG/1 ML VIAL IVPUSH SCH ×2 (01:40→09:20)
[2020-10-20] MEDS: GABAPENTIN 100 MG CAPSULE PO SCH (06:24)
[2020-10-20] MEDS: INSULIN SLIDING SCALE (NOVOLOG) 1 VIAL SQ SCH ×2 (06:29→11:16)
[2020-10-20 07:37] VITALS: TEMP 98.4
[2020-10-20 09:04] LABS: EPI CELLS 6 /uL (0-25.1); HYALINE CASTS 0 /uL (0-3.1); URINE APPEARANCE CLEAR; URINE BACTERIA 43 /uL (0-1359); URINE BILIRUBIN NEGATIVE (NEGATIVE); URINE COLOR YELLOW; URINE GLUCOSE (UA) NEGATIVE (NEGATIVE); URINE KETONE NEGATIVE (NEGATIVE); URINE LEUK ESTERASE TRACE (NEGATIVE); URINE NITRITE NEGATIVE (NEGATIVE); URINE PROTEIN TRACE (NEGATIVE); URINE RBC 122 /uL (0-23.9); URINE WBC 30 /uL (0-25.8)
[2020-10-20 09:11] LABS: BASO % 0.3 % (0-2.0); EOS % 2.3 % (0-4.5); HEMATOCRIT 34.1 % (32.4-45.2); HEMOGLOBIN 11.1 GM/dL (10.7-15.3); LYMPH % 24.1 % (8-40); MCH 30.7 pg (25.7-33.7); MCHC 32.6 g/dl (32.0-36.0); MEAN CELL VOLUME 94.3 fl (80-96); MEAN PLT VOLUME 11.1 fl (7.5-11.1); MONO % 8.7 % (3.8-10.2); NEUT % 64.6 % (42.8-82.8); PLATELET COUNT 262 10^3/uL (134-434); RBC 3.62 M/mm3 (3.60-5.2); RDW 13.9 % (11.6-15.6); WHITE BLOOD COUNT 13.1 K/mm3 (4.0-10.0)
[2020-10-20] MEDS ORDERED: PT OWN MED DRAWER 7, Y5N ONE (09:12)
[2020-10-20 09:15] VITALS: BP 130/79; PULSE 73
[2020-10-20] MEDS: CYCLOBENZAPRINE HCL 5 MG TABLET PO SCH (09:20)
[2020-10-20] MEDS: amLODIPine BESYLATE 5 MG TABLET (FP) PO SCH (09:20)
[2020-10-20] MEDS: LOSARTAN POTASSIUM 50 MG TABLET PO SCH (09:20)
[2020-10-20] MEDS: PANTOPRAZOLE 40 MG TABLET PO SCH (09:20)
[2020-10-20] MEDS: HEPARIN NA (PORCINE) 5,000 UNITS/ML 1ML VIAL SQ SCH (09:21)
[2020-10-20] MEDS: LITHIUM CARBONATE 450 MG TABLET.ER PO SCH (09:21)
[2020-10-20] MEDS: PARoxetine HCL 10 MG TABLET PO SCH (09:21)
[2020-10-20] MEDS: LIDOCAINE 5% TOPICAL PATCH TP SCH (09:21)
== END 2020-10-20 12:35 | disposition home or self-care (01) | DRG 552 ==
LOC: JER 09:32 → JERBED 14:16 → J6S 16:56
PROVIDERS: ADMIT Family Medicine; ATTEND Family Medicine
DX: M51.17 Intervertebral disc disorders with radiculopathy, lumbosacral region (principal); M51.16 Intervertebral disc disorders with radiculopathy, lumbar region; E11.9 Type 2 diabetes mellitus without complications; E78.5 Hyperlipidemia, unspecified; E66.9 Obesity, unspecified; Z79.4 Long term (current) use of insulin; Z68.29 Body mass index [BMI] 29.0-29.9, adult; E78.00 Pure hypercholesterolemia, unspecified
CPT/HCPCS: 36415; 70450-TC; 71045-TC-FY; 72146-TC; 72148-TC; 80053; 81003; 82962; 83036; 84132; 84443; 85025; 87040; 87086; 93005; 93010; 97116-GP; 97162-GP; 99285-25; C9803; J0131; J1644; U0003; U0005

== ENCOUNTER 2021-08-06 11:46 | Emergency (ER) | payer OTHER ==
[2021-08-06 12:10] VITALS: TEMP 97.4; BMI 34.9
[2021-08-06 14:36] VITALS: BP 118/70; PULSE 81
== END 2021-08-06 14:45 | disposition home or self-care (01) ==
LOC: JER 11:46
DX: E13.649 Other specified diabetes mellitus with hypoglycemia without coma (principal); R63.8 Other symptoms and signs concerning food and fluid intake
CPT/HCPCS: 82962; 93005; 93010; 99284-25

== ENCOUNTER 2022-05-07 02:47 | Inpatient (IN) | payer OTHER ==
[2022-05-07 05:20] LABS: URINE APPEARANCE CLEAR; URINE BILIRUBIN NEGATIVE (NEGATIVE); URINE COLOR YELLOW; URINE GLUCOSE (UA) NEGATIVE (NEGATIVE); URINE KETONE NEGATIVE (NEGATIVE); URINE LEUK ESTERASE NEGATIVE (NEGATIVE); URINE NITRITE NEGATIVE (NEGATIVE); URINE PROTEIN NEGATIVE (NEGATIVE); URINE UROBILINOGEN 0.2 mg/dL (0.2-1.0)
[2022-05-07 05:57] LABS: BASO % 0.7 % (0-2.0); EOS % 1.2 % (0-4.5); HEMOGLOBIN 11.3 GM/dL (10.7-15.3); LYMPH % 24.4 % (8-40); MCH 30.6 pg (25.7-33.7); MCHC 32.2 g/dl (32.0-36.0); MEAN PLT VOLUME 10.9 fl (7.5-11.1); MONO % 8.2 % (3.8-10.2); NEUT % 65.5 % (42.8-82.8); PLATELET COUNT 234 10^3/uL (134-434); RBC 3.68 M/mm3 (3.60-5.2); RDW 14.2 % (11.6-15.6); WHITE BLOOD COUNT 12.2 K/mm3 (4.0-10.0)
[2022-05-07 06:17] LABS: BLOOD UREA NITROGEN 24.5 mg/dL (7-18)
[2022-05-07 06:18] LABS: ALBUMIN 3.4 g/dl (3.4-5.0); MAGNESIUM 2.2 mg/dL (1.8-2.4)
[2022-05-07 06:19] LABS: CREATININE 1.3 mg/dL (0.55-1.3)
[2022-05-07 06:22] LABS: BILIRUBIN,TOTAL 0.4 mg/dL (0.2-1); TOT PROT 6.9 g/dl (6.4-8.2)
[2022-05-07] MEDS ORDERED: SODIUM CHLORIDE 0.9% 500 ML INFUS.BAG IV ONE (08:41)
[2022-05-07 09:48] LABS: CALCIUM 10.2 mg/dL (8.5-10.1)
[2022-05-07 09:49] LABS: BLOOD UREA NITROGEN 22.5 mg/dL (7-18)
[2022-05-07 09:52] LABS: CREATININE 1.2 mg/dL (0.55-1.3)
[2022-05-07] MEDS ORDERED: ASPIRIN 81 MG CHEWABLE TABLETS ONE (16:12)
[2022-05-07] MEDS: ASPIRIN COATED 81 MG TABLET.EC PO SCH (17:42)
[2022-05-07] MEDS ORDERED: HEPARIN NA (PORCINE) 5,000 UNITS/ML 1ML VIAL ONE (21:03)
[2022-05-07] MEDS ORDERED: ATORVASTATIN CA 80 MG TABLET (FP) ONE (21:03)
[2022-05-07] MEDS: ATORVASTATIN CA 80 MG TABLET (FP) PO SCH (21:18)
[2022-05-07] MEDS: HEPARIN NA (PORCINE) 5,000 UNITS/ML 1ML VIAL SQ SCH (21:18)
[2022-05-08] MEDS ORDERED: sitaGLIPtin PHOSPHATE 50 MG TABLET ONE (06:44)
[2022-05-08 07:26] LABS: BASO % 0.5 % (0-2.0); EOS % 2.2 % (0-4.5); HEMATOCRIT 36.5 % (32.4-45.2); HEMOGLOBIN 11.6 GM/dL (10.7-15.3); LYMPH % 25.1 % (8-40); MCH 30.3 pg (25.7-33.7); MCHC 31.9 g/dl (32.0-36.0); MEAN PLT VOLUME 10.8 fl (7.5-11.1); MONO % 9.7 % (3.8-10.2); NEUT % 62.5 % (42.8-82.8); PLATELET COUNT 242 10^3/uL (134-434); RBC 3.84 M/mm3 (3.60-5.2); RDW 14.1 % (11.6-15.6); WHITE BLOOD COUNT 11.3 K/mm3 (4.0-10.0)
[2022-05-08 07:51] LABS: CALCIUM 10.1 mg/dL (8.5-10.1)
[2022-05-08 07:52] LABS: ALBUMIN 3.4 g/dl (3.4-5.0); BLOOD UREA NITROGEN 18.5 mg/dL (7-18); MAGNESIUM 1.8 mg/dL (1.8-2.4)
[2022-05-08 07:55] LABS: CREATININE 1.1 mg/dL (0.55-1.3)
[2022-05-08 07:57] LABS: BILIRUBIN,TOTAL 0.5 mg/dL (0.2-1); TOT PROT 6.8 g/dl (6.4-8.2)
[2022-05-08] MEDS ORDERED: amLODIPine BESYLATE 5 MG TABLET (FP) ONE (09:08)
[2022-05-08] MEDS ORDERED: ASPIRIN COATED 81 MG TABLET.EC ONE (09:08)
[2022-05-08] MEDS ORDERED: PANTOPRAZOLE 40 MG TABLET PO ONE (09:08)
[2022-05-08] MEDS ORDERED: CARBIDOPA/LEVODOPA 25/100 TABLET (FP) ONE ×3 (09:09→15:56)
[2022-05-08] MEDS ORDERED: PARoxetine HCL 10 MG TABLET ONE (09:09)
[2022-05-08] MEDS ORDERED: LOSARTAN POTASSIUM 50 MG TABLET ONE ×2 (09:09→09:13)
[2022-05-08] MEDS ORDERED: HEPARIN NA (PORCINE) 5,000 UNITS/ML 1ML VIAL ONE (09:20)
[2022-05-08] MEDS: PANTOPRAZOLE 40 MG TABLET PO SCH (09:30)
[2022-05-08] MEDS: ASPIRIN COATED 81 MG TABLET.EC PO SCH (09:30)
[2022-05-08] MEDS: amLODIPine BESYLATE 5 MG TABLET (FP) PO SCH (09:30)
[2022-05-08] MEDS: PARoxetine HCL 10 MG TABLET PO SCH (09:30)
[2022-05-08] MEDS: HEPARIN NA (PORCINE) 5,000 UNITS/ML 1ML VIAL SQ SCH (09:30)
[2022-05-08] MEDS ORDERED: PATIENT'S OWN MEDICATION (NON-FORMULARY) (Dapagliflozin Propanediol 5 MG Tablet) PO SCH (10:00)
[2022-05-08] MEDS: LOSARTAN POTASSIUM 50 MG TABLET PO SCH (11:38)
[2022-05-08 13:21] VITALS: BMI 34.0
[2022-05-08] MEDS ORDERED: PNEUMOC 20-VAL CONJ-DIP CRM/PF 0.5 ML SYRINGE IM ONE (16:00)
[2022-05-08] MEDS: LITHIUM CARBONATE 450 MG TABLET.ER PO SCH (17:03)
[2022-05-09] MEDS: ATORVASTATIN CA 80 MG TABLET (FP) PO SCH ×2 (03:15→22:37)
[2022-05-09] MEDS: HEPARIN NA (PORCINE) 5,000 UNITS/ML 1ML VIAL SQ SCH ×3 (03:15→22:36)
[2022-05-09] MEDS ORDERED: ATORVASTATIN CA 80 MG TABLET (FP) ONE (03:18)
[2022-05-09] MEDS ORDERED: HEPARIN NA (PORCINE) 5,000 UNITS/ML 1ML VIAL ONE ×2 (03:18→03:24)
[2022-05-09 07:54] LABS: BASO % 0.6 % (0-2.0); EOS % 2.2 % (0-4.5); HEMATOCRIT 34.8 % (32.4-45.2); HEMOGLOBIN 11.1 GM/dL (10.7-15.3); LYMPH % 31.3 % (8-40); MCH 30.2 pg (25.7-33.7); MCHC 31.9 g/dl (32.0-36.0); MEAN CELL VOLUME 94.7 fl (80-96); MEAN PLT VOLUME 11.6 fl (7.5-11.1); MONO % 9.3 % (3.8-10.2); NEUT % 56.6 % (42.8-82.8); PLATELET COUNT 250 10^3/uL (134-434); RBC 3.68 M/mm3 (3.60-5.2); RDW 13.9 % (11.6-15.6); WHITE BLOOD COUNT 15.5 K/mm3 (4.0-10.0)
[2022-05-09 08:17] LABS: ALBUMIN 3.5 g/dl (3.4-5.0); BLOOD UREA NITROGEN 18.8 mg/dL (7-18); CALCIUM 10.3 mg/dL (8.5-10.1)
[2022-05-09 08:19] LABS: CREATININE 1.1 mg/dL (0.55-1.3)
[2022-05-09 08:21] LABS: BILIRUBIN,TOTAL 1.3 mg/dL (0.2-1); TOT PROT 6.8 g/dl (6.4-8.2)
[2022-05-09] MEDS: PANTOPRAZOLE 40 MG TABLET PO SCH (09:49)
[2022-05-09] MEDS: PARoxetine HCL 10 MG TABLET PO SCH (09:50)
[2022-05-09] MEDS: amLODIPine BESYLATE 5 MG TABLET (FP) PO SCH (09:50)
[2022-05-09] MEDS: LOSARTAN POTASSIUM 50 MG TABLET PO SCH (09:50)
[2022-05-09] MEDS: ASPIRIN COATED 81 MG TABLET.EC PO SCH (09:50)
[2022-05-09] MEDS: LITHIUM CARBONATE 450 MG TABLET.ER PO SCH (12:39)
[2022-05-09] MEDS: CEFTRIAXONE 1 GM in DEXTROSE 5%-WATER - 50 ML IVPB SCH (17:42)
[2022-05-09] MEDS: INSULIN SLIDING SCALE (NOVOLOG) 1 VIAL SQ SCH (23:37)
[2022-05-10] MEDS ORDERED: ACETAMINOPHEN 325 MG TABLET (FP) PO ONE (06:03)
[2022-05-10] MEDS: INSULIN SLIDING SCALE (NOVOLOG) 1 VIAL SQ SCH ×4 (06:08→23:30)
[2022-05-10] MEDS: ASPIRIN COATED 81 MG TABLET.EC PO SCH (09:38)
[2022-05-10] MEDS: amLODIPine BESYLATE 5 MG TABLET (FP) PO SCH (09:38)
[2022-05-10] MEDS: LOSARTAN POTASSIUM 50 MG TABLET PO SCH (09:38)
[2022-05-10] MEDS: PANTOPRAZOLE 40 MG TABLET PO SCH (09:38)
[2022-05-10] MEDS: PARoxetine HCL 10 MG TABLET PO SCH (09:39)
[2022-05-10] MEDS: CEFTRIAXONE 1 GM in DEXTROSE 5%-WATER - 50 ML IVPB SCH (09:39)
[2022-05-10] MEDS: LITHIUM CARBONATE 450 MG TABLET.ER PO SCH (09:40)
[2022-05-10] MEDS: HEPARIN NA (PORCINE) 5,000 UNITS/ML 1ML VIAL SQ SCH ×2 (09:40→22:18)
[2022-05-10] MEDS: ACETAMINOPHEN 500 MG TABLET (FP) PO PRN ×2 (11:36→22:19)
[2022-05-10] MEDS: ATORVASTATIN CA 80 MG TABLET (FP) PO SCH (22:20)
[2022-05-11] MEDS: ACETAMINOPHEN 500 MG TABLET (FP) PO PRN (06:44)
[2022-05-11] MEDS: INSULIN SLIDING SCALE (NOVOLOG) 1 VIAL SQ SCH ×4 (06:46→22:36)
[2022-05-11 08:24] LABS: BASO % 0.6 % (0-2.0); HEMATOCRIT 35.3 % (32.4-45.2); HEMOGLOBIN 11.3 GM/dL (10.7-15.3); MCH 30.3 pg (25.7-33.7); MEAN CELL VOLUME 94.7 fl (80-96); MEAN PLT VOLUME 11.7 fl (7.5-11.1); MONO % 8.5 % (3.8-10.2); NEUT % 64.9 % (42.8-82.8); PLATELET COUNT 272 10^3/uL (134-434); RBC 3.73 M/mm3 (3.60-5.2); RDW 13.8 % (11.6-15.6); WHITE BLOOD COUNT 18.6 K/mm3 (4.0-10.0)
[2022-05-11 09:26] LABS: ALBUMIN 3.8 g/dl (3.4-5.0); BLOOD UREA NITROGEN 16.5 mg/dL (7-18); CALCIUM 10.7 mg/dL (8.5-10.1)
[2022-05-11 09:29] LABS: CREATININE 1.1 mg/dL (0.55-1.3)
[2022-05-11 09:31] LABS: BILIRUBIN,TOTAL 1.1 mg/dL (0.2-1); TOT PROT 7.2 g/dl (6.4-8.2)
[2022-05-11] MEDS: amLODIPine BESYLATE 5 MG TABLET (FP) PO SCH (09:52)
[2022-05-11] MEDS: CEFTRIAXONE 1 GM in DEXTROSE 5%-WATER - 50 ML IVPB SCH (09:52)
[2022-05-11] MEDS: ASPIRIN COATED 81 MG TABLET.EC PO SCH (09:52)
[2022-05-11] MEDS: PANTOPRAZOLE 40 MG TABLET PO SCH (09:52)
[2022-05-11] MEDS: PARoxetine HCL 10 MG TABLET PO SCH (09:52)
[2022-05-11] MEDS: LOSARTAN POTASSIUM 50 MG TABLET PO SCH (09:52)
[2022-05-11] MEDS: LITHIUM CARBONATE 450 MG TABLET.ER PO SCH (09:53)
[2022-05-11] MEDS: HEPARIN NA (PORCINE) 5,000 UNITS/ML 1ML VIAL SQ SCH ×2 (09:53→21:29)
[2022-05-11] MEDS ORDERED: DOCUSATE SODIUM 100 MG CAPSULE (FP) PO ONE (18:53)
[2022-05-11] MEDS ORDERED: POLYETHYLENE GLYCOL (HEALTHYLAX) 3350 17 GM PACKET PO ONE (19:00)
[2022-05-11] MEDS: ATORVASTATIN CA 80 MG TABLET (FP) PO SCH (21:29)
[2022-05-12] MEDS: INSULIN SLIDING SCALE (NOVOLOG) 1 VIAL SQ SCH ×4 (06:29→21:23)
[2022-05-12 08:33] LABS: BASO % 0.5 % (0-2.0); EOS % 0.4 % (0-4.5); HEMATOCRIT 36.1 % (32.4-45.2); HEMOGLOBIN 11.7 GM/dL (10.7-15.3); LYMPH % 15.2 % (8-40); MCH 30.4 pg (25.7-33.7); MCHC 32.5 g/dl (32.0-36.0); MEAN CELL VOLUME 93.8 fl (80-96); MEAN PLT VOLUME 11.5 fl (7.5-11.1); NEUT % 75.9 % (42.8-82.8); PLATELET COUNT 297 10^3/uL (134-434); RBC 3.85 M/mm3 (3.60-5.2); RDW 13.6 % (11.6-15.6); WHITE BLOOD COUNT 17.2 K/mm3 (4.0-10.0)
[2022-05-12] MEDS: CEFTRIAXONE 1 GM in DEXTROSE 5%-WATER - 50 ML IVPB SCH (09:58)
[2022-05-12] MEDS: amLODIPine BESYLATE 5 MG TABLET (FP) PO SCH (09:59)
[2022-05-12] MEDS: HEPARIN NA (PORCINE) 5,000 UNITS/ML 1ML VIAL SQ SCH ×2 (09:59→21:19)
[2022-05-12] MEDS: PARoxetine HCL 10 MG TABLET PO SCH (09:59)
[2022-05-12] MEDS: PANTOPRAZOLE 40 MG TABLET PO SCH (09:59)
[2022-05-12] MEDS: ASPIRIN COATED 81 MG TABLET.EC PO SCH (10:00)
[2022-05-12] MEDS: LOSARTAN POTASSIUM 50 MG TABLET PO SCH (10:00)
[2022-05-12] MEDS: LITHIUM CARBONATE 450 MG TABLET.ER PO SCH (10:02)
[2022-05-12 15:28] VITALS: RESP 20
[2022-05-12 17:50] LABS: CALCIUM 10.8 mg/dL (8.5-10.1)
[2022-05-12 17:51] LABS: BLOOD UREA NITROGEN 15.8 mg/dL (7-18)
[2022-05-12 17:54] LABS: CREATININE 1.3 mg/dL (0.55-1.3)
[2022-05-12] MEDS: ATORVASTATIN CA 80 MG TABLET (FP) PO SCH (21:20)
[2022-05-13] MEDS: INSULIN SLIDING SCALE (NOVOLOG) 1 VIAL SQ SCH ×2 (06:00→11:23)
[2022-05-13 08:25] LABS: BASO % 0.4 % (0-2.0); EOS % 1.3 % (0-4.5); HEMATOCRIT 34.4 % (32.4-45.2); HEMOGLOBIN 11.3 GM/dL (10.7-15.3); LYMPH % 20.1 % (8-40); MCH 30.6 pg (25.7-33.7); MCHC 32.9 g/dl (32.0-36.0); MEAN CELL VOLUME 92.9 fl (80-96); MEAN PLT VOLUME 11.5 fl (7.5-11.1); MONO % 9.7 % (3.8-10.2); NEUT % 68.5 % (42.8-82.8); PLATELET COUNT 296 10^3/uL (134-434); RDW 13.4 % (11.6-15.6); WHITE BLOOD COUNT 16.2 K/mm3 (4.0-10.0)
[2022-05-13 08:28] LABS: ALBUMIN 3.8 g/dl (3.4-5.0); CALCIUM 10.9 mg/dL (8.5-10.1)
[2022-05-13 08:29] LABS: BLOOD UREA NITROGEN 17.2 mg/dL (7-18)
[2022-05-13 08:31] LABS: CREATININE 1.2 mg/dL (0.55-1.3)
[2022-05-13 08:33] LABS: TOT PROT 7.3 g/dl (6.4-8.2)
[2022-05-13 08:45] LABS: BILIRUBIN,TOTAL 0.9 mg/dL (0.2-1)
[2022-05-13] MEDS: amLODIPine BESYLATE 5 MG TABLET (FP) PO SCH (09:38)
[2022-05-13] MEDS: ASPIRIN COATED 81 MG TABLET.EC PO SCH (09:38)
[2022-05-13] MEDS: PANTOPRAZOLE 40 MG TABLET PO SCH (09:38)
[2022-05-13] MEDS: LITHIUM CARBONATE 450 MG TABLET.ER PO SCH (09:39)
[2022-05-13] MEDS: HEPARIN NA (PORCINE) 5,000 UNITS/ML 1ML VIAL SQ SCH (09:39)
[2022-05-13] MEDS: CEFTRIAXONE 1 GM in DEXTROSE 5%-WATER - 50 ML IVPB SCH (09:39)
[2022-05-13] MEDS: LOSARTAN POTASSIUM 50 MG TABLET PO SCH (09:54)
[2022-05-13] MEDS: PARoxetine HCL 10 MG TABLET PO SCH (10:17)
[2022-05-13 13:02] VITALS: BP 153/79; TEMP 98.2
[2022-05-13 14:42] VITALS: PULSE 88
== END 2022-05-13 14:35 | disposition home or self-care (01) | DRG 312 ==
LOC: JER 02:47 → OBSVTOIN 10:29 → JERBED 10:29 → J4W 05-09 04:53
PROVIDERS: ADMIT Family Medicine; ATTEND Family Medicine
DX: R55 Syncope and collapse (principal); F31.89 Other bipolar disorder; E78.5 Hyperlipidemia, unspecified; I10 Essential (primary) hypertension; E11.40 Type 2 diabetes mellitus with diabetic neuropathy, unspecified; G20 Parkinson's disease; S80.212A Abrasion, left knee, initial encounter; I44.0 Atrioventricular block, first degree; R00.1 Bradycardia, unspecified; M54.9 Dorsalgia, unspecified; G89.29 Other chronic pain; E83.52 Hypercalcemia; M25.512 Pain in left shoulder; D72.829 Elevated white blood cell count, unspecified; F03.90 Unspecified dementia, unspecified severity, without behavioral disturbance, psychotic disturbance, mood disturbance, and anxiety; W06.XXXA Fall from bed, initial encounter; Y92.092 Bedroom in other non-institutional residence as the place of occurrence of the external cause; Z85.828 Personal history of other malignant neoplasm of skin
CPT/HCPCS: 0241U-QW; 36415; 70450-TC; 71046-TC-FY; 72125-TC; 73521-TC-FY; 73562-TC-LT-FY; 80048; 80053; 80061; 81003; 82306; 82550; 82553; 82962; 83036; 83735; 83970; 84443; 84484; 85025; 87040; 87086; 90677; 93005; 93010; 93306-TC; 97116-GP; 97162-GP; 99285-25; J1644

== ENCOUNTER 2022-06-02 22:34 | Observation (INO) | payer OTHER ==
[2022-06-02 22:40] VITALS: BMI 37.8
[2022-06-02] MEDS ORDERED: FAMOTIDINE 20 MG/50 ML IVPB 20 MG/50 ML MG IVPB ONE ×2 (23:09→23:36)
[2022-06-02] MEDS ORDERED: ONDANSETRON 4 MG/2 ML VIAL IVPUSH ONE (23:09)
[2022-06-02] MEDS ORDERED: SODIUM CHLORIDE 0.9% 1000 ML INFUS.BAG IV ONE (23:09)
[2022-06-02] MEDS ORDERED: ACETAMINOPHEN 1000 MG/100 ML BAG IVPB ONE (23:09)
[2022-06-02] MEDS ORDERED: ACETAMINOPHEN INJECTION 100 ML IVPB ONE (23:11)
[2022-06-02] MEDS ORDERED: ONDANSETRON 4 MG/2 ML VIAL ONE (23:11)
[2022-06-02 23:23] LABS: BASO % 0.6 % (0-2.0); EOS % 3.3 % (0-4.5); HEMATOCRIT 32.1 % (32.4-45.2); HEMOGLOBIN 10.9 GM/dL (10.7-15.3); LYMPH % 35.4 % (8-40); MCH 31.4 pg (25.7-33.7); MCHC 34.1 g/dl (32.0-36.0); MEAN CELL VOLUME 92.2 fl (80-96); MEAN PLT VOLUME 9.8 fl (7.5-11.1); MONO % 9.2 % (3.8-10.2); NEUT % 51.5 % (42.8-82.8); PLATELET COUNT 346 10^3/uL (134-434); RBC 3.48 M/mm3 (3.60-5.2); RDW 13.1 % (11.6-15.6); WHITE BLOOD COUNT 12.6 K/mm3 (4.0-10.0)
[2022-06-02 23:25] LABS: INR 1.1 (0.83-1.09); PROTHROMBIN TIME (PATIENT) 12.7 SEC (9.7-13.0)
[2022-06-02 23:27] LABS: ACTIVATED PTT 29.6 SECONDS (25.2-36.5)
[2022-06-02 23:36] LABS: VENOUS BASE EXCESS 0.4 mmol/L (-2-2); VENOUS O2 SATURATION 41.4 % (70-80); VENOUS PH 7.371 (7.310-7.410)
[2022-06-02 23:48] LABS: ALBUMIN 3.2 g/dl (3.4-5.0); BLOOD UREA NITROGEN 24.2 mg/dL (7-18); CALCIUM 10.4 mg/dL (8.5-10.1)
[2022-06-02 23:51] LABS: CREATININE 1.4 mg/dL (0.55-1.3)
[2022-06-02 23:53] LABS: BILIRUBIN,TOTAL 0.7 mg/dL (0.2-1)
[2022-06-02 23:59] LABS: EPI CELLS 6 /uL (0-25.1); HYALINE CASTS 1 /uL (0-3.1); URINE APPEARANCE CLEAR; URINE BACTERIA 11 /uL (0-1359); URINE BILIRUBIN NEGATIVE (NEGATIVE); URINE COLOR YELLOW; URINE GLUCOSE (UA) NEGATIVE (NEGATIVE); URINE KETONE NEGATIVE (NEGATIVE); URINE LEUK ESTERASE TRACE (NEGATIVE); URINE NITRITE NEGATIVE (NEGATIVE); URINE PROTEIN NEGATIVE (NEGATIVE); URINE RBC 6 /uL (0-23.9); URINE UROBILINOGEN 0.2 mg/dL (0.2-1.0); URINE WBC 29 /uL (0-25.8)
[2022-06-03] MEDS ORDERED: FENTANYL CITRATE/PF 50 MCG/ML VIAL IVPUSH ONE (01:39)
[2022-06-03] MEDS ORDERED: FENTANYL CITRATE/PF 50 MCG/ML VIAL ONE (01:47)
[2022-06-03] MEDS ORDERED: DOCUSATE SODIUM 100 MG CAPSULE (FP) PO PRN (03:15)
[2022-06-03] MEDS ORDERED: ACETAMINOPHEN 1000 MG/100 ML BAG IVPB PRN (03:21)
[2022-06-03] MEDS ORDERED: TRIMETHOBENZAMIDE HCL 200MG/2ML INJ IM ONE (05:07)
[2022-06-03] MEDS ORDERED: TRIMETHOBENZAMIDE HCL 200MG/2ML INJ IM PRN (06:00)
[2022-06-03] MEDS: DEXTROSE 5%-NORMAL SALINE 1,000 ML IV SCH (07:02)
[2022-06-03 09:20] LABS: BASO % 0.6 % (0-2.0); EOS % 3.4 % (0-4.5); HEMATOCRIT 33.6 % (32.4-45.2); HEMOGLOBIN 11.3 GM/dL (10.7-15.3); LYMPH % 27.3 % (8-40); MCH 31.6 pg (25.7-33.7); MCHC 33.7 g/dl (32.0-36.0); MEAN CELL VOLUME 93.9 fl (80-96); MEAN PLT VOLUME 9.3 fl (7.5-11.1); MONO % 10.7 % (3.8-10.2); PLATELET COUNT 326 10^3/uL (134-434); RBC 3.58 M/mm3 (3.60-5.2); RDW 13.3 % (11.6-15.6); WHITE BLOOD COUNT 12.4 K/mm3 (4.0-10.0)
[2022-06-03] MEDS ORDERED: LITHIUM CARBONATE 450 MG TABLET.ER PO SCH (10:00)
[2022-06-03] MEDS ORDERED: PANTOPRAZOLE 20 MG TABLET PO SCH (10:00)
[2022-06-03] MEDS: INSULIN SLIDING SCALE (NOVOLOG) 1 VIAL SQ SCH ×5 (10:31→21:57)
[2022-06-03] MEDS: PANTOPRAZOLE 20 MG TABLET PO SCH (10:52)
[2022-06-03 11:14] LABS: CALCIUM 10.4 mg/dL (8.5-10.1)
[2022-06-03 11:15] LABS: BLOOD UREA NITROGEN 20.2 mg/dL (7-18)
[2022-06-03 11:18] LABS: CREATININE 1.3 mg/dL (0.55-1.3)
[2022-06-03 13:49] LABS: MAGNESIUM 2.1 mg/dL (1.8-2.4); PHOSPHOROUS 3.8 mg/dL (2.5-4.9)
[2022-06-03] MEDS: D5-1/2NS+10 MEQ KCL - 10 MEQ/1,000 ML INFUS.BAG IV SCH (16:24)
[2022-06-03] MEDS: traZODone HCL 100 MG TABLET (FP) PO SCH (21:53)
[2022-06-04] MEDS: D5-1/2NS+10 MEQ KCL - 10 MEQ/1,000 ML INFUS.BAG IV SCH ×2 (01:37→14:56)
[2022-06-04] MEDS: DEXTROSE 5%-NORMAL SALINE 1,000 ML IV SCH (03:49)
[2022-06-04] MEDS: INSULIN SLIDING SCALE (NOVOLOG) 1 VIAL SQ SCH ×4 (06:18→21:13)
[2022-06-04 09:05] LABS: BASO % 0.5 % (0-2.0); EOS % 5.4 % (0-4.5); HEMATOCRIT 31.5 % (32.4-45.2); HEMOGLOBIN 10.5 GM/dL (10.7-15.3); LYMPH % 43.2 % (8-40); MCH 30.9 pg (25.7-33.7); MCHC 33.3 g/dl (32.0-36.0); MEAN CELL VOLUME 92.8 fl (80-96); MEAN PLT VOLUME 10.5 fl (7.5-11.1); NEUT % 40.9 % (42.8-82.8); PLATELET COUNT 355 10^3/uL (134-434); RBC 3.39 M/mm3 (3.60-5.2); RDW 13.2 % (11.6-15.6); WHITE BLOOD COUNT 11.6 K/mm3 (4.0-10.0)
[2022-06-04 09:33] LABS: BLOOD UREA NITROGEN 14.3 mg/dL (7-18); CALCIUM 10.3 mg/dL (8.5-10.1)
[2022-06-04 09:37] LABS: CREATININE 1.1 mg/dL (0.55-1.3)
[2022-06-04] MEDS: PANTOPRAZOLE 20 MG TABLET PO SCH (11:44)
[2022-06-04] MEDS: FAMOTIDINE 20 MG/50 ML IVPB 20 MG/50 ML MG IVPB SCH (21:14)
[2022-06-04] MEDS: traZODone HCL 100 MG TABLET (FP) PO SCH (21:14)
[2022-06-05] MEDS: D5-1/2NS+10 MEQ KCL - 10 MEQ/1,000 ML INFUS.BAG IV SCH ×4 (02:10→16:16)
[2022-06-05] MEDS: INSULIN SLIDING SCALE (NOVOLOG) 1 VIAL SQ SCH ×4 (06:01→23:34)
[2022-06-05] MEDS: PANTOPRAZOLE 20 MG TABLET PO SCH (09:29)
[2022-06-05] MEDS: FAMOTIDINE 20 MG/50 ML IVPB 20 MG/50 ML MG IVPB SCH ×2 (09:30→21:02)
[2022-06-05 10:50] LABS: EOS % 3.6 % (0-4.5); HEMOGLOBIN 10.7 GM/dL (10.7-15.3); MCH 31.2 pg (25.7-33.7); MCHC 33.5 g/dl (32.0-36.0); MEAN CELL VOLUME 93.2 fl (80-96); MEAN PLT VOLUME 10.5 fl (7.5-11.1); MONO % 10.3 % (3.8-10.2); NEUT % 45.1 % (42.8-82.8); PLATELET COUNT 356 10^3/uL (134-434); RBC 3.43 M/mm3 (3.60-5.2); RDW 13.4 % (11.6-15.6); WHITE BLOOD COUNT 10.5 K/mm3 (4.0-10.0)
[2022-06-05 11:28] LABS: CALCIUM 10.2 mg/dL (8.5-10.1)
[2022-06-05 11:29] LABS: BLOOD UREA NITROGEN 11.8 mg/dL (7-18)
[2022-06-05 11:32] LABS: BILIRUBIN,TOTAL 0.8 mg/dL (0.2-1); TOT PROT 6.4 g/dl (6.4-8.2)
[2022-06-05] MEDS: traZODone HCL 100 MG TABLET (FP) PO SCH (21:03)
[2022-06-06] MEDS: D5-1/2NS+10 MEQ KCL - 10 MEQ/1,000 ML INFUS.BAG IV SCH ×3 (00:50→16:38)
[2022-06-06] MEDS: INSULIN SLIDING SCALE (NOVOLOG) 1 VIAL SQ SCH ×3 (06:46→16:38)
[2022-06-06] MEDS: FAMOTIDINE 20 MG/50 ML IVPB 20 MG/50 ML MG IVPB SCH (09:21)
[2022-06-06] MEDS: PANTOPRAZOLE 20 MG TABLET PO SCH (09:21)
[2022-06-06] MEDS ORDERED: clonazePAM 2 MG TABLET PO PRN (22:00)
[2022-06-06] MEDS: traZODone HCL 100 MG TABLET (FP) PO SCH (22:13)
[2022-06-07] MEDS: INSULIN SLIDING SCALE (NOVOLOG) 1 VIAL SQ SCH ×3 (02:37→11:46)
[2022-06-07] MEDS: PANTOPRAZOLE 20 MG TABLET PO SCH (10:25)
[2022-06-07] MEDS: D5-1/2NS+10 MEQ KCL - 10 MEQ/1,000 ML INFUS.BAG IV SCH (10:30)
[2022-06-07] MEDS ORDERED: INSULIN (NOVOLOG) ASPART 100 UNITS/ML 10ML VIAL ONE (11:42)
[2022-06-07 14:17] VITALS: BP 159/84; PULSE 93; RESP 18; TEMP 98.1
== END 2022-06-07 16:53 | disposition home or self-care (01) ==
LOC: JER 22:34 → JERBED 06-03 02:28 → J6S 06-03 08:33
PROVIDERS: ADMIT Internal Medicine; ATTEND Internal Medicine
PROC: 3E033NZ Introduction of Analgesics, Hypnotics, Sedatives into Peripheral Vein, Percutaneous Approach (ICD-10-PCS; principal; 2022-06-03)
PROC: 3E033GC Introduction of Other Therapeutic Substance into Peripheral Vein, Percutaneous Approach (ICD-10-PCS; 2022-06-03)
PROC: 3E033NZ Introduction of Analgesics, Hypnotics, Sedatives into Peripheral Vein, Percutaneous Approach (ICD-10-PCS; 2022-06-03)
PROC: 3E013VG Introduction of Insulin into Subcutaneous Tissue, Percutaneous Approach (ICD-10-PCS; 2022-06-03)
PROC: 3E0337Z Introduction of Electrolytic and Water Balance Substance into Peripheral Vein, Percutaneous Approach (ICD-10-PCS; 2022-06-03)
DX: N17.9 Acute kidney failure, unspecified (principal); E86.0 Dehydration; F31.9 Bipolar disorder, unspecified; I10 Essential (primary) hypertension; F03.90 Unspecified dementia, unspecified severity, without behavioral disturbance, psychotic disturbance, mood disturbance, and anxiety; E78.5 Hyperlipidemia, unspecified; E11.9 Type 2 diabetes mellitus without complications; G20 Parkinson's disease; R53.1 Weakness
CPT/HCPCS: 0241U-QW; 36415; 71045-TC-FY; 74176-TC; 74177-TC; 76705-TC; 80048; 80053; 80178; 81003; 82140; 82803; 82962; 83605; 83690; 83735; 84100; 84484; 85025; 85610; 85730; 86140; 86850; 86900; 86901; 87086; 87186; 93005; 93010; 96361; 96365; 96367; 96372; 96375; 96376; 99285-25; G0378

== ENCOUNTER 2022-07-09 19:20 | Inpatient (IN) | payer OTHER ==
[2022-07-09 20:01] VITALS: BMI 30.7
[2022-07-09 21:22] LABS: BASO % 0.8 % (0-2.0); EOS % 0.8 % (0-4.5); HEMATOCRIT 36.1 % (32.4-45.2); HEMOGLOBIN 11.7 GM/dL (10.7-15.3); LYMPH % 41.9 % (8-40); MCH 29.8 pg (25.7-33.7); MCHC 32.5 g/dl (32.0-36.0); MEAN CELL VOLUME 91.8 fl (80-96); MEAN PLT VOLUME 10.7 fl (7.5-11.1); MONO % 11.8 % (3.8-10.2); NEUT % 44.7 % (42.8-82.8); PLATELET COUNT 267 10^3/uL (134-434); RBC 3.94 M/mm3 (3.60-5.2); RDW 14.2 % (11.6-15.6); WHITE BLOOD COUNT 12.8 K/mm3 (4.0-10.0)
[2022-07-09 21:44] LABS: ALBUMIN 4.2 g/dl (3.4-5.0); BLOOD UREA NITROGEN 28.6 mg/dL (7-18); CALCIUM 10.8 mg/dL (8.5-10.1)
[2022-07-09 21:47] LABS: CREATININE 1.5 mg/dL (0.55-1.3)
[2022-07-09 21:49] LABS: BILIRUBIN,TOTAL 0.6 mg/dL (0.2-1); TOT PROT 8.2 g/dl (6.4-8.2)
[2022-07-09 22:05] LABS: URINE APPEARANCE CLEAR; URINE BILIRUBIN NEGATIVE (NEGATIVE); URINE COLOR YELLOW; URINE GLUCOSE (UA) TRACE (NEGATIVE); URINE KETONE NEGATIVE (NEGATIVE); URINE LEUK ESTERASE NEGATIVE (NEGATIVE); URINE NITRITE NEGATIVE (NEGATIVE); URINE PROTEIN TRACE (NEGATIVE); URINE UROBILINOGEN 0.2 mg/dL (0.2-1.0)
[2022-07-09] MEDS ORDERED: DEXTROSE 50%-WATER - 25 GM/50 ML VIAL IVPUSH ONE (22:39)
[2022-07-09] MEDS ORDERED: INSULIN REGULAR HUMAN 100 UNITS/ML *VIAL IVPUSH ONE (22:39)
[2022-07-09] MEDS ORDERED: LACTATED RINGERS SOLUTION 1000 ML INFUS.BAG IV ONE (22:39)
[2022-07-09 22:49] LABS: COCAINE, UR NEGATIVE (NEGATIVE); METHADONE, UR NEGATIVE (NEGATIVE); OPIATES, URI NEGATIVE (NEGATIVE); PHENCYCLIDINE,URINE NEGATIVE (NEGATIVE); URINE AMPHETAMINES NEGATIVE (NEGATIVE); URINE BARBITURATES NEGATIVE (NEGATIVE); URINE BENZODIAZEPINES NEGATIVE (NEGATIVE)
[2022-07-09] MEDS ORDERED: SODIUM ZIRCONIUM CYCLOSILICATE (LOKELMA) 5 GM PACKET ONE (23:00)
[2022-07-09] MEDS: SODIUM ZIRCONIUM CYCLOSILICATE (LOKELMA) 5 GM PACKET PO ONE (23:07)
[2022-07-09] MEDS ORDERED: DEXTROSE 50%-WATER 25 GM/50 ML DISP.SYRIN ONE (23:08)
[2022-07-09] MEDS ORDERED: INSULIN REGULAR HUMAN 100 UNITS/ML *VIAL ONE (23:09)
[2022-07-09] MEDS ORDERED: DEXTROSE 5%-NORMAL SALINE 1,000 ML IV SCH (23:45)
[2022-07-10] MEDS ORDERED: DOCUSATE SODIUM 100 MG CAPSULE (FP) PO PRN (05:00)
[2022-07-10 05:23] LABS: BASO % 0.6 % (0-2.0); EOS % 1.1 % (0-4.5); HEMOGLOBIN 11.4 GM/dL (10.7-15.3); MCH 30.6 pg (25.7-33.7); MCHC 33.4 g/dl (32.0-36.0); MEAN CELL VOLUME 91.6 fl (80-96); MEAN PLT VOLUME 11.4 fl (7.5-11.1); MONO % 11.9 % (3.8-10.2); NEUT % 48.4 % (42.8-82.8); PLATELET COUNT 281 10^3/uL (134-434); RBC 3.71 M/mm3 (3.60-5.2); WHITE BLOOD COUNT 11.1 K/mm3 (4.0-10.0)
[2022-07-10 07:54] LABS: CALCIUM 10.1 mg/dL (8.5-10.1)
[2022-07-10 07:55] LABS: BLOOD UREA NITROGEN 24.2 mg/dL (7-18); MAGNESIUM 2.3 mg/dL (1.8-2.4)
[2022-07-10 07:58] LABS: CREATININE 1.4 mg/dL (0.55-1.3); PHOSPHOROUS 3.7 mg/dL (2.5-4.9)
[2022-07-10] MEDS: SODIUM CHLORIDE 1,000 ML IV SCH (08:39)
[2022-07-10] MEDS: PANTOPRAZOLE 40 MG TABLET PO SCH (09:24)
[2022-07-10] MEDS: CHOLECALCIFEROL (VIT D3) 400 UNIT (10 MCG) TABLET PO SCH (09:24)
[2022-07-10] MEDS ORDERED: LOSARTAN POTASSIUM 50 MG TABLET PO SCH (10:00)
[2022-07-10] MEDS ORDERED: amLODIPine BESYLATE 5 MG TABLET (FP) PO SCH (10:00)
[2022-07-10] MEDS: LITHIUM CARBONATE 450 MG TABLET.ER PO SCH (11:18)
[2022-07-10] MEDS: INSULIN SLIDING SCALE (NOVOLOG) 1 VIAL SQ SCH ×3 (11:29→22:15)
[2022-07-10] MEDS ORDERED: traZODone HCL 100 MG TABLET (FP) PO SCH (22:00)
[2022-07-10] MEDS: clonazePAM 2 MG TABLET PO SCH (22:07)
[2022-07-10] MEDS: SODIUM ZIRCONIUM CYCLOSILICATE (LOKELMA) 5 GM PACKET PO ONE (23:46)
[2022-07-11] MEDS: INSULIN SLIDING SCALE (NOVOLOG) 1 VIAL SQ SCH ×4 (06:09→22:18)
[2022-07-11] MEDS: SODIUM CHLORIDE 1,000 ML IV SCH (09:25)
[2022-07-11] MEDS: PANTOPRAZOLE 40 MG TABLET PO SCH ×2 (09:27→12:14)
[2022-07-11] MEDS: CHOLECALCIFEROL (VIT D3) 400 UNIT (10 MCG) TABLET PO SCH ×2 (09:27→12:14)
[2022-07-11] MEDS: amLODIPine BESYLATE 10 MG TABLET (FP) PO SCH ×2 (09:28→12:15)
[2022-07-11] MEDS: LITHIUM CARBONATE 450 MG TABLET.ER PO SCH ×2 (09:36→12:15)
[2022-07-11] MEDS: clonazePAM 2 MG TABLET PO SCH (22:09)
[2022-07-11] MEDS: OLANZapine 10 MG TABLET PO SCH (22:09)
[2022-07-12] MEDS: INSULIN SLIDING SCALE (NOVOLOG) 1 VIAL SQ SCH ×4 (06:31→22:12)
[2022-07-12] MEDS: PANTOPRAZOLE 40 MG TABLET PO SCH (09:43)
[2022-07-12] MEDS: CHOLECALCIFEROL (VIT D3) 400 UNIT (10 MCG) TABLET PO SCH (09:43)
[2022-07-12] MEDS: amLODIPine BESYLATE 10 MG TABLET (FP) PO SCH (09:43)
[2022-07-12] MEDS: LITHIUM CARBONATE 450 MG TABLET.ER PO SCH (09:44)
[2022-07-12] MEDS: OLANZapine 10 MG TABLET PO SCH ×2 (09:44→22:08)
[2022-07-12] MEDS: SODIUM CHLORIDE 1,000 ML IV SCH (09:44)
[2022-07-12] MEDS: clonazePAM 2 MG TABLET PO SCH (22:08)
[2022-07-13] MEDS: INSULIN SLIDING SCALE (NOVOLOG) 1 VIAL SQ SCH ×4 (06:14→23:16)
[2022-07-13] MEDS: SODIUM CHLORIDE 1,000 ML IV SCH (09:21)
[2022-07-13] MEDS: PANTOPRAZOLE 40 MG TABLET PO SCH ×2 (09:34→09:45)
[2022-07-13] MEDS: amLODIPine BESYLATE 10 MG TABLET (FP) PO SCH ×2 (09:34→09:45)
[2022-07-13] MEDS: CHOLECALCIFEROL (VIT D3) 400 UNIT (10 MCG) TABLET PO SCH ×2 (09:34→09:45)
[2022-07-13] MEDS: OLANZapine 10 MG TABLET PO SCH ×3 (09:34→23:12)
[2022-07-13] MEDS: LITHIUM CARBONATE 450 MG TABLET.ER PO SCH ×2 (09:34→09:45)
[2022-07-13 14:19] LABS: BASO % 0.8 % (0-2.0); EOS % 1.9 % (0-4.5); HEMATOCRIT 32.7 % (32.4-45.2); HEMOGLOBIN 10.8 GM/dL (10.7-15.3); LYMPH % 29.3 % (8-40); MCH 30.1 pg (25.7-33.7); MEAN CELL VOLUME 91.2 fl (80-96); MEAN PLT VOLUME 11.2 fl (7.5-11.1); MONO % 9.9 % (3.8-10.2); NEUT % 58.1 % (42.8-82.8); PLATELET COUNT 233 10^3/uL (134-434); RBC 3.58 M/mm3 (3.60-5.2); RDW 13.5 % (11.6-15.6); WHITE BLOOD COUNT 13.2 K/mm3 (4.0-10.0)
[2022-07-13 14:43] LABS: CALCIUM 9.9 mg/dL (8.5-10.1)
[2022-07-13 14:44] LABS: BLOOD UREA NITROGEN 27.5 mg/dL (7-18)
[2022-07-13 14:47] LABS: CREATININE 1.1 mg/dL (0.55-1.3)
[2022-07-13 14:48] LABS: TOT PROT 6.8 g/dl (6.4-8.2)
[2022-07-13 15:08] LABS: ALBUMIN 3.3 g/dl (3.4-5.0)
[2022-07-13] MEDS: clonazePAM 2 MG TABLET PO SCH (23:12)
[2022-07-14] MEDS: INSULIN SLIDING SCALE (NOVOLOG) 1 VIAL SQ SCH ×4 (06:05→22:38)
[2022-07-14 07:50] LABS: BASO % 0.6 % (0-2.0); EOS % 2.6 % (0-4.5); HEMATOCRIT 32.9 % (32.4-45.2); HEMOGLOBIN 10.9 GM/dL (10.7-15.3); LYMPH % 29.8 % (8-40); MCH 30.1 pg (25.7-33.7); MEAN CELL VOLUME 91.2 fl (80-96); MEAN PLT VOLUME 12.1 fl (7.5-11.1); MONO % 9.4 % (3.8-10.2); NEUT % 57.6 % (42.8-82.8); PLATELET COUNT 247 10^3/uL (134-434); RBC 3.61 M/mm3 (3.60-5.2); RDW 13.5 % (11.6-15.6); WHITE BLOOD COUNT 11.8 K/mm3 (4.0-10.0)
[2022-07-14 08:09] LABS: CALCIUM 10.1 mg/dL (8.5-10.1)
[2022-07-14 08:10] LABS: ALBUMIN 3.4 g/dl (3.4-5.0)
[2022-07-14 08:14] LABS: BILIRUBIN,TOTAL 1.2 mg/dL (0.2-1)
[2022-07-14 08:15] LABS: TOT PROT 7.2 g/dl (6.4-8.2)
[2022-07-14 08:16] LABS: CREATININE 1.2 mg/dL (0.55-1.3)
[2022-07-14] MEDS: PANTOPRAZOLE 40 MG TABLET PO SCH (10:47)
[2022-07-14] MEDS: amLODIPine BESYLATE 10 MG TABLET (FP) PO SCH (10:47)
[2022-07-14] MEDS: LITHIUM CARBONATE 450 MG TABLET.ER PO SCH (10:47)
[2022-07-14] MEDS: CHOLECALCIFEROL (VIT D3) 400 UNIT (10 MCG) TABLET PO SCH (10:47)
[2022-07-14] MEDS: OLANZapine 10 MG TABLET PO SCH ×2 (10:47→22:41)
[2022-07-14] MEDS ORDERED: INSULIN (NOVOLOG) ASPART 100 UNITS/ML 10ML VIAL ONE (22:38)
[2022-07-14] MEDS: clonazePAM 2 MG TABLET PO SCH (22:41)
[2022-07-15] MEDS: INSULIN SLIDING SCALE (NOVOLOG) 1 VIAL SQ SCH ×4 (06:55→22:58)
[2022-07-15] MEDS: LITHIUM CARBONATE 450 MG TABLET.ER PO SCH ×2 (10:05→10:12)
[2022-07-15] MEDS: amLODIPine BESYLATE 10 MG TABLET (FP) PO SCH ×2 (10:05→10:12)
[2022-07-15] MEDS: CHOLECALCIFEROL (VIT D3) 400 UNIT (10 MCG) TABLET PO SCH ×2 (10:05→10:12)
[2022-07-15] MEDS: PANTOPRAZOLE 40 MG TABLET PO SCH ×2 (10:05→10:12)
[2022-07-15] MEDS: OLANZapine 10 MG TABLET PO SCH ×3 (10:05→22:58)
[2022-07-15 16:59] LABS: EPI CELLS 12 /uL (0-25.1); HYALINE CASTS 3 /uL (0-3.1); PH,URINE 6.5 (5.0-8.0); URINE APPEARANCE TURBID; URINE BACTERIA >9,000 /uL (0-1359); URINE BILIRUBIN NEGATIVE (NEGATIVE); URINE COLOR YELLOW; URINE GLUCOSE (UA) NEGATIVE (NEGATIVE); URINE KETONE NEGATIVE (NEGATIVE); URINE LEUK ESTERASE 3+ (NEGATIVE); URINE NITRITE POSITIVE (NEGATIVE); URINE PROTEIN 2+ (NEGATIVE); URINE WBC 5923 /uL (0-25.8)
[2022-07-15 17:42] LABS: URINE RBC 81 /uL (0-23.9)
[2022-07-15] MEDS: clonazePAM 2 MG TABLET PO SCH (22:58)
[2022-07-16] MEDS: INSULIN SLIDING SCALE (NOVOLOG) 1 VIAL SQ SCH ×4 (06:29→21:20)
[2022-07-16] MEDS: amLODIPine BESYLATE 10 MG TABLET (FP) PO SCH (09:40)
[2022-07-16] MEDS: PANTOPRAZOLE 40 MG TABLET PO SCH (09:41)
[2022-07-16] MEDS: CHOLECALCIFEROL (VIT D3) 400 UNIT (10 MCG) TABLET PO SCH (09:42)
[2022-07-16] MEDS: OLANZapine 10 MG TABLET PO SCH ×3 (09:42→23:20)
[2022-07-16] MEDS: clonazePAM 2 MG TABLET PO SCH ×2 (21:10→23:21)
[2022-07-17] MEDS: INSULIN SLIDING SCALE (NOVOLOG) 1 VIAL SQ SCH ×4 (06:24→21:23)
[2022-07-17] MEDS: amLODIPine BESYLATE 10 MG TABLET (FP) PO SCH (09:00)
[2022-07-17] MEDS: CHOLECALCIFEROL (VIT D3) 400 UNIT (10 MCG) TABLET PO SCH (09:00)
[2022-07-17] MEDS: PANTOPRAZOLE 40 MG TABLET PO SCH (09:00)
[2022-07-17] MEDS: OLANZapine 10 MG TABLET PO SCH ×2 (09:00→21:23)
[2022-07-18] MEDS: INSULIN SLIDING SCALE (NOVOLOG) 1 VIAL SQ SCH ×4 (06:04→22:12)
[2022-07-18 08:29] LABS: ALBUMIN 3.6 g/dl (3.4-5.0)
[2022-07-18 08:30] LABS: BLOOD UREA NITROGEN 32.8 mg/dL (7-18)
[2022-07-18 08:33] LABS: BILIRUBIN,TOTAL 0.5 mg/dL (0.2-1); TOT PROT 7.7 g/dl (6.4-8.2)
[2022-07-18 08:58] LABS: BASO % 0.8 % (0-2.0); EOS % 1.5 % (0-4.5); HEMATOCRIT 34.4 % (32.4-45.2); HEMOGLOBIN 11.9 GM/dL (10.7-15.3); LYMPH % 26.1 % (8-40); MCH 30.8 pg (25.7-33.7); MCHC 34.5 g/dl (32.0-36.0); MEAN CELL VOLUME 89.3 fl (80-96); MEAN PLT VOLUME 11.9 fl (7.5-11.1); MONO % 9.8 % (3.8-10.2); NEUT % 61.8 % (42.8-82.8); PLATELET COUNT 298 10^3/uL (134-434); RBC 3.85 M/mm3 (3.60-5.2); RDW 13.4 % (11.6-15.6)
[2022-07-18] MEDS: PANTOPRAZOLE 40 MG TABLET PO SCH (10:18)
[2022-07-18] MEDS: CHOLECALCIFEROL (VIT D3) 400 UNIT (10 MCG) TABLET PO SCH (10:19)
[2022-07-18] MEDS: amLODIPine BESYLATE 10 MG TABLET (FP) PO SCH (10:19)
[2022-07-18] MEDS: OLANZapine 10 MG TABLET PO SCH ×2 (10:21→22:09)
[2022-07-18] MEDS ORDERED: ACETAMINOPHEN 325 MG TABLET (FP) PO ONE (20:10)
[2022-07-19] MEDS: INSULIN SLIDING SCALE (NOVOLOG) 1 VIAL SQ SCH ×4 (06:17→22:39)
[2022-07-19 08:49] LABS: ALBUMIN 3.6 g/dl (3.4-5.0)
[2022-07-19 08:50] LABS: BLOOD UREA NITROGEN 31.8 mg/dL (7-18)
[2022-07-19 08:57] LABS: BILIRUBIN,TOTAL 0.5 mg/dL (0.2-1)
[2022-07-19 08:58] LABS: TOT PROT 7.6 g/dl (6.4-8.2)
[2022-07-19] MEDS: amLODIPine BESYLATE 10 MG TABLET (FP) PO SCH (10:50)
[2022-07-19] MEDS: PANTOPRAZOLE 40 MG TABLET PO SCH (10:50)
[2022-07-19] MEDS: CHOLECALCIFEROL (VIT D3) 400 UNIT (10 MCG) TABLET PO SCH (10:50)
[2022-07-19] MEDS: OLANZapine 10 MG TABLET PO SCH ×2 (11:19→22:38)
[2022-07-19] MEDS ORDERED: DOCUSATE SODIUM 100 MG CAPSULE (FP) PO PRN (16:11)
[2022-07-20] MEDS: CALCITONIN - SALMON SYNTHETIC 400 UNIT/2 ML VIAL SQ SCH ×2 (02:37→12:29)
[2022-07-20] MEDS: INSULIN SLIDING SCALE (NOVOLOG) 1 VIAL SQ SCH ×4 (06:22→21:57)
[2022-07-20] MEDS: PANTOPRAZOLE 40 MG TABLET PO SCH (10:43)
[2022-07-20] MEDS: OLANZapine 10 MG TABLET PO SCH ×2 (10:43→21:59)
[2022-07-20] MEDS: CHOLECALCIFEROL (VIT D3) 400 UNIT (10 MCG) TABLET PO SCH (10:43)
[2022-07-20] MEDS: amLODIPine BESYLATE 10 MG TABLET (FP) PO SCH (10:43)
[2022-07-20 14:08] VITALS: RESP 18
[2022-07-20] MEDS: SODIUM CHLORIDE 1,000 ML IV SCH (14:08)
[2022-07-21] MEDS: SODIUM CHLORIDE 1,000 ML IV SCH ×2 (06:23→14:29)
[2022-07-21] MEDS: INSULIN SLIDING SCALE (NOVOLOG) 1 VIAL SQ SCH ×4 (06:27→21:06)
[2022-07-21 09:32] LABS: CALCIUM 9.6 mg/dL (8.5-10.1)
[2022-07-21 09:33] LABS: ALBUMIN 3.4 g/dl (3.4-5.0); BLOOD UREA NITROGEN 23.6 mg/dL (7-18)
[2022-07-21 09:37] LABS: BILIRUBIN,TOTAL 0.5 mg/dL (0.2-1); TOT PROT 7.2 g/dl (6.4-8.2)
[2022-07-21] MEDS: OLANZapine 10 MG TABLET PO SCH ×3 (10:32→21:06)
[2022-07-21] MEDS: PANTOPRAZOLE 40 MG TABLET PO SCH ×2 (10:32)
[2022-07-21] MEDS: CHOLECALCIFEROL (VIT D3) 400 UNIT (10 MCG) TABLET PO SCH ×2 (10:32)
[2022-07-21] MEDS: amLODIPine BESYLATE 10 MG TABLET (FP) PO SCH ×2 (10:33→14:29)
[2022-07-21] MEDS ORDERED: INSULIN (NOVOLOG) ASPART 100 UNITS/ML 10ML VIAL ONE (18:00)
[2022-07-22] MEDS: INSULIN SLIDING SCALE (NOVOLOG) 1 VIAL SQ SCH ×4 (06:06→21:29)
[2022-07-22] MEDS: amLODIPine BESYLATE 10 MG TABLET (FP) PO SCH (09:58)
[2022-07-22] MEDS: CHOLECALCIFEROL (VIT D3) 400 UNIT (10 MCG) TABLET PO SCH (09:59)
[2022-07-22] MEDS: OLANZapine 10 MG TABLET PO SCH ×2 (09:59→21:20)
[2022-07-22] MEDS: PANTOPRAZOLE 40 MG TABLET PO SCH (09:59)
[2022-07-22] MEDS ORDERED: INSULIN (NOVOLOG MIX 70/30) 100 UNITS/ML MDV SQ ONE (11:00)
[2022-07-23] MEDS: INSULIN SLIDING SCALE (NOVOLOG) 1 VIAL SQ SCH ×3 (06:28→16:40)
[2022-07-23 08:23] VITALS: BP 130/75; PULSE 78; TEMP 97.9
[2022-07-23] MEDS ORDERED: ACETAMINOPHEN 325 MG TABLET (FP) PO PRN (08:51)
[2022-07-23] MEDS: amLODIPine BESYLATE 10 MG TABLET (FP) PO SCH (11:17)
[2022-07-23] MEDS: PANTOPRAZOLE 40 MG TABLET PO SCH ×2 (11:17)
[2022-07-23] MEDS: CHOLECALCIFEROL (VIT D3) 400 UNIT (10 MCG) TABLET PO SCH (11:17)
[2022-07-23] MEDS: OLANZapine 10 MG TABLET PO SCH (11:17)
== END 2022-07-23 19:30 | DRG 885 ==
LOC: JER 19:20 → JERBED 23:04 → J4W 07-10 01:38 → OBSVTOIN 07-12 13:04 → J7W 07-19 12:21
PROVIDERS: ADMIT Internal Medicine; ATTEND Family Medicine
DX: F23 Brief psychotic disorder (principal); R45.851 Suicidal ideations; N17.9 Acute kidney failure, unspecified; F02.C11 Dementia in other diseases classified elsewhere, severe, with agitation; G30.9 Alzheimer's disease, unspecified; T42.8X5A Adverse effect of antiparkinsonism drugs and other central muscle-tone depressants, initial encounter; E83.52 Hypercalcemia; F31.9 Bipolar disorder, unspecified; G20 Parkinson's disease; E04.1 Nontoxic single thyroid nodule; R94.5 Abnormal results of liver function studies; I10 Essential (primary) hypertension; R13.10 Dysphagia, unspecified; E78.5 Hyperlipidemia, unspecified; E11.40 Type 2 diabetes mellitus with diabetic neuropathy, unspecified; Z85.828 Personal history of other malignant neoplasm of skin; Z86.73 Personal history of transient ischemic attack (TIA), and cerebral infarction without residual deficits
CPT/HCPCS: 0241U-QW; 36415; 70450-TC; 71045-TC-FY; 72125-TC; 76700-TC; 76775-TC; 80048; 80053; 80178; 80307; 81003; 82436; 82570; 82962; 83735; 83970; 84100; 84133; 84300; 84439; 84443; 84479; 84484; 85025; 86708; 86803; 87340; 87517; 93005; 93010; 97116-GP; 99285-25; C9803-CS; G0378; U0003; U0005

== ENCOUNTER 2022-09-28 13:08 | Inpatient (IN) | payer OTHER ==
[2022-09-28 13:14] VITALS: BMI 37.0
[2022-09-28] MEDS ORDERED: ACETAMINOPHEN 1000 MG/100 ML BAG IVPB ONE (13:52)
[2022-09-28 14:26] LABS: BASO % 0.6 % (0-2.0); EOS % 2.4 % (0-4.5); HEMATOCRIT 33.8 % (32.4-45.2); HEMOGLOBIN 10.9 GM/dL (10.7-15.3); LYMPH % 48.4 % (8-40); MCH 29.6 pg (25.7-33.7); MCHC 32.2 g/dl (32.0-36.0); MEAN CELL VOLUME 92.1 fl (80-96); MEAN PLT VOLUME 10.6 fl (7.5-11.1); MONO % 9.9 % (3.8-10.2); NEUT % 38.7 % (42.8-82.8); PLATELET COUNT 261 10^3/uL (134-434); RBC 3.68 M/mm3 (3.60-5.2); WHITE BLOOD COUNT 10.2 K/mm3 (4.0-10.0)
[2022-09-28 14:33] LABS: INR 1.05 (0.83-1.09); PROTHROMBIN TIME (PATIENT) 12.2 SEC (9.7-13.0)
[2022-09-28 14:36] LABS: ACTIVATED PTT 30.4 SECONDS (25.2-36.5)
[2022-09-28] MEDS ORDERED: ACETAMINOPHEN INJECTION 100 ML IVPB ONE (14:39)
[2022-09-28 14:47] LABS: POTASSIUM 4.7 mmol/L (3.5-5.1)
[2022-09-28 14:49] LABS: CALCIUM 9.9 mg/dL (8.5-10.1)
[2022-09-28 14:50] LABS: ALBUMIN 3.9 g/dl (3.4-5.0); BLOOD UREA NITROGEN 21.6 mg/dL (7-18); MAGNESIUM 2.2 mg/dL (1.8-2.4)
[2022-09-28 14:58] LABS: N-TERMINAL BNP 109.6 pg/ml (5-125)
[2022-09-28] MEDS ORDERED: FUROSEMIDE 40 MG/4 ML INJECTABLE VIAL IVPUSH ONE (15:01)
[2022-09-28] MEDS ORDERED: FUROSEMIDE 40 MG/4 ML INJECTABLE VIAL ONE (15:23)
[2022-09-28 15:30] LABS: EPI CELLS 3 /uL (0-25.1); HYALINE CASTS 0 /uL (0-3.1); URINE APPEARANCE CLEAR; URINE BACTERIA >9,000 /uL (0-1359); URINE BILIRUBIN NEGATIVE (NEGATIVE); URINE COLOR YELLOW; URINE GLUCOSE (UA) NEGATIVE (NEGATIVE); URINE KETONE NEGATIVE (NEGATIVE); URINE LEUK ESTERASE TRACE (NEGATIVE); URINE NITRITE NEGATIVE (NEGATIVE); URINE PROTEIN TRACE (NEGATIVE); URINE RBC 15 /uL (0-23.9); URINE UROBILINOGEN 0.2 mg/dL (0.2-1.0); URINE WBC 13 /uL (0-25.8)
[2022-09-28] MEDS ORDERED: CEFTRIAXONE 1,000 MG in DEXTROSE 5%-WATER - 50 ML IVPB ONE (15:32)
[2022-09-28] MEDS ORDERED: CEFTRIAXONE 1 GM/50 ML BAG ONE (15:54)
[2022-09-28] MEDS ORDERED: DOCUSATE SODIUM 100 MG CAPSULE (FP) PO PRN (17:05)
[2022-09-28] MEDS ORDERED: LOSARTAN POTASSIUM 50 MG TABLET PO ONE (17:07)
[2022-09-28] MEDS: OLANZapine 10 MG TABLET PO SCH (21:24)
[2022-09-29 07:48] LABS: POTASSIUM 4.5 mmol/L (3.5-5.1)
[2022-09-29 07:52] LABS: CALCIUM 9.9 mg/dL (8.5-10.1)
[2022-09-29 07:53] LABS: ALBUMIN 3.8 g/dl (3.4-5.0); BLOOD UREA NITROGEN 19.4 mg/dL (7-18)
[2022-09-29 07:56] LABS: CREATININE 1.1 mg/dL (0.55-1.3)
[2022-09-29 07:57] LABS: BILIRUBIN,TOTAL 1.4 mg/dL (0.2-1); TOT PROT 7.5 g/dl (6.4-8.2)
[2022-09-29] MEDS: CEFTRIAXONE 1 GM in DEXTROSE 5%-WATER - 50 ML IVPB SCH (10:19)
[2022-09-29] MEDS: OLANZapine 10 MG TABLET PO SCH ×2 (10:24→21:38)
[2022-09-29] MEDS: PANTOPRAZOLE 40 MG TABLET PO SCH (10:25)
[2022-09-29] MEDS: FUROSEMIDE 40 MG/4 ML INJECTABLE VIAL IVPUSH SCH (10:25)
[2022-09-29] MEDS: LOSARTAN POTASSIUM 50 MG TABLET PO SCH (10:25)
[2022-09-29] MEDS: POLYETHYLENE GLYCOL (HEALTHYLAX) 3350 17 GM PACKET PO SCH ×2 (13:52→21:38)
[2022-09-29] MEDS: HEPARIN NA (PORCINE) 5,000 UNITS/ML 1ML VIAL SQ SCH (21:37)
[2022-09-29] MEDS: clonazePAM 0.5 MG TABLET PO PRN (21:38)
[2022-09-30 08:24] LABS: ALBUMIN 3.3 g/dl (3.4-5.0); CALCIUM 9.6 mg/dL (8.5-10.1)
[2022-09-30 08:28] LABS: CREATININE 1.2 mg/dL (0.55-1.3)
[2022-09-30 08:29] LABS: BILIRUBIN,TOTAL 1.2 mg/dL (0.2-1); TOT PROT 6.9 g/dl (6.4-8.2)
[2022-09-30] MEDS: OLANZapine 10 MG TABLET PO SCH ×2 (09:31→21:59)
[2022-09-30] MEDS: FUROSEMIDE 40 MG/4 ML INJECTABLE VIAL IVPUSH SCH (09:31)
[2022-09-30] MEDS: HEPARIN NA (PORCINE) 5,000 UNITS/ML 1ML VIAL SQ SCH ×2 (09:31→21:59)
[2022-09-30] MEDS: CEFTRIAXONE 1 GM in DEXTROSE 5%-WATER - 50 ML IVPB SCH (09:31)
[2022-09-30] MEDS: LOSARTAN POTASSIUM 50 MG TABLET PO SCH (09:31)
[2022-09-30] MEDS: PANTOPRAZOLE 40 MG TABLET PO SCH (09:32)
[2022-09-30] MEDS: clonazePAM 0.5 MG TABLET PO PRN ×2 (09:32→22:01)
[2022-09-30] MEDS: POLYETHYLENE GLYCOL (HEALTHYLAX) 3350 17 GM PACKET PO SCH ×2 (09:32→21:59)
[2022-10-01] MEDS: CEFTRIAXONE 1 GM in DEXTROSE 5%-WATER - 50 ML IVPB SCH (09:17)
[2022-10-01] MEDS: POLYETHYLENE GLYCOL (HEALTHYLAX) 3350 17 GM PACKET PO SCH ×2 (09:17→21:43)
[2022-10-01] MEDS: clonazePAM 0.5 MG TABLET PO PRN (09:18)
[2022-10-01] MEDS: OLANZapine 10 MG TABLET PO SCH ×2 (09:18→21:44)
[2022-10-01] MEDS: HEPARIN NA (PORCINE) 5,000 UNITS/ML 1ML VIAL SQ SCH ×2 (09:18→21:43)
[2022-10-01] MEDS: LOSARTAN POTASSIUM 50 MG TABLET PO SCH (09:18)
[2022-10-01] MEDS: PANTOPRAZOLE 40 MG TABLET PO SCH (09:18)
[2022-10-01] MEDS ORDERED: FUROSEMIDE 20 MG TABLET (FP) PO SCH (10:00)
[2022-10-01] MEDS ORDERED: clonazePAM 0.5 MG TABLET PO PRN (17:54)
[2022-10-01] MEDS ORDERED: DOCUSATE SODIUM 100 MG CAPSULE (FP) PO PRN (17:54)
[2022-10-02] MEDS: FUROSEMIDE 20 MG TABLET (FP) PO SCH (09:55)
[2022-10-02] MEDS: CEFTRIAXONE 1 GM in DEXTROSE 5%-WATER - 50 ML IVPB SCH (09:55)
[2022-10-02] MEDS: POLYETHYLENE GLYCOL (HEALTHYLAX) 3350 17 GM PACKET PO SCH ×2 (09:56→21:58)
[2022-10-02] MEDS: PANTOPRAZOLE 40 MG TABLET PO SCH (09:56)
[2022-10-02] MEDS: HEPARIN NA (PORCINE) 5,000 UNITS/ML 1ML VIAL SQ SCH ×2 (09:56→21:58)
[2022-10-02] MEDS: LOSARTAN POTASSIUM 50 MG TABLET PO SCH (09:56)
[2022-10-02] MEDS: OLANZapine 10 MG TABLET PO SCH ×2 (09:56→21:58)
[2022-10-03] MEDS: OLANZapine 10 MG TABLET PO SCH ×2 (10:59→21:50)
[2022-10-03] MEDS: LOSARTAN POTASSIUM 50 MG TABLET PO SCH (10:59)
[2022-10-03] MEDS: FUROSEMIDE 20 MG TABLET (FP) PO SCH (10:59)
[2022-10-03] MEDS: POLYETHYLENE GLYCOL (HEALTHYLAX) 3350 17 GM PACKET PO SCH ×2 (10:59→21:50)
[2022-10-03] MEDS: CEFTRIAXONE 1 GM in DEXTROSE 5%-WATER - 50 ML IVPB SCH (10:59)
[2022-10-03] MEDS: PANTOPRAZOLE 40 MG TABLET PO SCH (10:59)
[2022-10-03] MEDS: HEPARIN NA (PORCINE) 5,000 UNITS/ML 1ML VIAL SQ SCH ×2 (10:59→21:50)
[2022-10-03] MEDS ORDERED: LACTATED RINGERS SOLUTION 1,000 ML/1,000 ML INFUS.BAG IV SCH (15:15)
[2022-10-03 15:29] LABS: ARTERIAL BLD GAS O2 SATURATION 92.5 % (95-98); ARTERIAL BLOOD GAS BASE EXCESS 0.1 mmol/L (-2-2); ARTERIAL BLOOD GAS PO2 60.6 mmHg (80-100)
[2022-10-03 15:32] LABS: ALLENS TEST POSITIVE
[2022-10-03 18:49] LABS: POTASSIUM 4.5 mmol/L (3.5-5.1)
[2022-10-03 18:51] LABS: ALBUMIN 3.9 g/dl (3.4-5.0); BLOOD UREA NITROGEN 27.6 mg/dL (7-18); CALCIUM 10.1 mg/dL (8.5-10.1)
[2022-10-03 18:54] LABS: CREATININE 1.2 mg/dL (0.55-1.3)
[2022-10-03 18:56] LABS: BILIRUBIN,TOTAL 0.4 mg/dL (0.2-1)
[2022-10-04] MEDS: OLANZapine 10 MG TABLET PO SCH ×2 (09:40→22:06)
[2022-10-04] MEDS: HEPARIN NA (PORCINE) 5,000 UNITS/ML 1ML VIAL SQ SCH ×2 (09:40→22:06)
[2022-10-04] MEDS: POLYETHYLENE GLYCOL (HEALTHYLAX) 3350 17 GM PACKET PO SCH ×2 (09:40→22:06)
[2022-10-04] MEDS: LOSARTAN POTASSIUM 50 MG TABLET PO SCH (09:40)
[2022-10-04] MEDS: FUROSEMIDE 20 MG TABLET (FP) PO SCH (09:40)
[2022-10-04] MEDS: CEFTRIAXONE 1 GM in DEXTROSE 5%-WATER - 50 ML IVPB SCH (09:45)
[2022-10-04] MEDS: PANTOPRAZOLE 40 MG TABLET PO SCH (09:46)
[2022-10-05 10:46] VITALS: RESP 20
[2022-10-05] MEDS: CEFTRIAXONE 1 GM in DEXTROSE 5%-WATER - 50 ML IVPB SCH (10:46)
[2022-10-05] MEDS: FUROSEMIDE 20 MG TABLET (FP) PO SCH (10:47)
[2022-10-05] MEDS: PANTOPRAZOLE 40 MG TABLET PO SCH (10:47)
[2022-10-05] MEDS: LOSARTAN POTASSIUM 50 MG TABLET PO SCH (10:47)
[2022-10-05] MEDS: OLANZapine 10 MG TABLET PO SCH ×2 (10:47→22:21)
[2022-10-05] MEDS: POLYETHYLENE GLYCOL (HEALTHYLAX) 3350 17 GM PACKET PO SCH ×2 (10:47→22:14)
[2022-10-05] MEDS: HEPARIN NA (PORCINE) 5,000 UNITS/ML 1ML VIAL SQ SCH ×2 (10:47→22:14)
[2022-10-06] MEDS: LOSARTAN POTASSIUM 50 MG TABLET PO SCH (09:22)
[2022-10-06] MEDS: CEFTRIAXONE 1 GM in DEXTROSE 5%-WATER - 50 ML IVPB SCH (09:22)
[2022-10-06] MEDS: POLYETHYLENE GLYCOL (HEALTHYLAX) 3350 17 GM PACKET PO SCH ×2 (09:22→21:11)
[2022-10-06] MEDS: OLANZapine 10 MG TABLET PO SCH ×2 (09:22→21:10)
[2022-10-06] MEDS: HEPARIN NA (PORCINE) 5,000 UNITS/ML 1ML VIAL SQ SCH ×2 (09:22→21:10)
[2022-10-06] MEDS: FUROSEMIDE 20 MG TABLET (FP) PO SCH (09:22)
[2022-10-06] MEDS: PANTOPRAZOLE 40 MG TABLET PO SCH (09:36)
[2022-10-07] MEDS ORDERED: ACETAMINOPHEN 325 MG TABLET (FP) PO ONE (02:26)
[2022-10-07] MEDS ORDERED: MELATONIN 5 MG TABLETS PO ONE (02:26)
[2022-10-07] MEDS: POLYETHYLENE GLYCOL (HEALTHYLAX) 3350 17 GM PACKET PO SCH (09:58)
[2022-10-07] MEDS: OLANZapine 10 MG TABLET PO SCH (09:58)
[2022-10-07] MEDS: HEPARIN NA (PORCINE) 5,000 UNITS/ML 1ML VIAL SQ SCH (09:58)
[2022-10-07] MEDS: FUROSEMIDE 20 MG TABLET (FP) PO SCH (09:58)
[2022-10-07] MEDS: PANTOPRAZOLE 40 MG TABLET PO SCH (09:58)
[2022-10-07] MEDS: LOSARTAN POTASSIUM 50 MG TABLET PO SCH (09:58)
[2022-10-07] MEDS: CEFTRIAXONE 1 GM in DEXTROSE 5%-WATER - 50 ML IVPB SCH (09:58)
[2022-10-07 14:44] VITALS: BP 115/69; PULSE 99; TEMP 97.8
== END 2022-10-07 14:10 | disposition home or self-care (01) | DRG 291 ==
LOC: JER 13:08 → JERBED 15:01 → J4W 17:05 → OBSVTOIN 09-30 09:23 → J7W 10-01 15:59 → J8W 10-06 12:46
PROVIDERS: ADMIT Internal Medicine; ATTEND Internal Medicine
DX: I11.0 Hypertensive heart disease with heart failure (principal); G92.8 Other toxic encephalopathy; I50.33 Acute on chronic diastolic (congestive) heart failure; N39.0 Urinary tract infection, site not specified; R45.851 Suicidal ideations; E78.5 Hyperlipidemia, unspecified; E11.40 Type 2 diabetes mellitus with diabetic neuropathy, unspecified; G20 Parkinson's disease; F31.9 Bipolar disorder, unspecified; G89.29 Other chronic pain; G30.9 Alzheimer's disease, unspecified; F02.80 Dementia in other diseases classified elsewhere, unspecified severity, without behavioral disturbance, psychotic disturbance, mood disturbance, and anxiety; E66.9 Obesity, unspecified; Z68.37 Body mass index [BMI] 37.0-37.9, adult; I07.1 Rheumatic tricuspid insufficiency; I35.1 Nonrheumatic aortic (valve) insufficiency; B96.20 Unspecified Escherichia coli [E. coli] as the cause of diseases classified elsewhere; Z85.828 Personal history of other malignant neoplasm of skin
CPT/HCPCS: 36415; 36600; 70450-TC; 71045-TC-FY; 76705-TC; 80053; 81003; 82803; 82962; 83735; 83880; 84439; 84443; 84484; 85025; 85610; 85730; 87086; 87186; 93005; 93010; 93306-TC; 97116-GP; 97162-GP; 99285-25; G0378; J1644

== ENCOUNTER 2022-10-11 09:45 | Observation (INO) | payer OTHER ==
[2022-10-11 10:04] VITALS: BMI 36.1
[2022-10-11] MEDS ORDERED: CHARCOAL/WATER SOLUTION 25 GM/120 ML TUBE PO ONE (10:37)
[2022-10-11] MEDS ORDERED: CHARCOAL/WATER SOLUTION 25 GM/120 ML TUBE ONE (10:42)
[2022-10-11 11:00] LABS: BASO % 0.9 % (0-2.0); EOS % 0.6 % (0-4.5); HEMATOCRIT 38.2 % (32.4-45.2); HEMOGLOBIN 12.3 GM/dL (10.7-15.3); LYMPH % 38.5 % (8-40); MCH 29.8 pg (25.7-33.7); MCHC 32.3 g/dl (32.0-36.0); MEAN CELL VOLUME 92.3 fl (80-96); MEAN PLT VOLUME 11.2 fl (7.5-11.1); MONO % 9.5 % (3.8-10.2); NEUT % 50.5 % (42.8-82.8); PLATELET COUNT 243 10^3/uL (134-434); RBC 4.14 M/mm3 (3.60-5.2); RDW 13.6 % (11.6-15.6); WHITE BLOOD COUNT 14.2 K/mm3 (4.0-10.0)
[2022-10-11 11:33] LABS: CHLORIDE 106 mmol/L (98-107); POTASSIUM 4.6 mmol/L (3.5-5.1); SODIUM 141 mmol/L (136-145)
[2022-10-11 11:37] LABS: ALBUMIN 3.8 g/dl (3.4-5.0); ANION GAP 13 MMOL/L (8-16); BLOOD UREA NITROGEN 24.3 mg/dL (7-18); CALCIUM 10.4 mg/dL (8.5-10.1); CO2 22 mmol/L (21-32); GLUCOSE,RANDOM 232 mg/dL (74-106); MAGNESIUM 2.1 mg/dL (1.8-2.4)
[2022-10-11 11:39] LABS: CREATININE 1.2 mg/dL (0.55-1.3); PHOSPHOROUS 1.8 mg/dL (2.5-4.9); SGOT/AST 31 U/L (15-37)
[2022-10-11 11:40] LABS: SGPT/ALT 50 U/L (13-61); TOT PROT 7.6 g/dl (6.4-8.2)
[2022-10-11 11:41] LABS: BILIRUBIN,TOTAL 0.6 mg/dL (0.2-1)
[2022-10-11 11:42] LABS: ALK PHOS 126 U/L (45-117)
[2022-10-11 11:58] LABS: VENOUS BASE EXCESS 0.5 mmol/L (-2-2); VENOUS O2 SATURATION 93.1 % (70-80); VENOUS PCO2 26.5 mmHg (38-52); VENOUS PH 7.535 (7.310-7.410)
[2022-10-11 12:08] LABS: INR 1.03 (0.83-1.09)
[2022-10-11 13:44] LABS: URINE APPEARANCE CLEAR; URINE BILIRUBIN NEGATIVE (NEGATIVE); URINE COLOR YELLOW; URINE GLUCOSE (UA) NEGATIVE (NEGATIVE); URINE KETONE NEGATIVE (NEGATIVE); URINE LEUK ESTERASE NEGATIVE (NEGATIVE); URINE NITRITE NEGATIVE (NEGATIVE); URINE PROTEIN NEGATIVE (NEGATIVE); URINE UROBILINOGEN 0.2 mg/dL (0.2-1.0)
[2022-10-11 13:58] LABS: METHADONE, UR NEGATIVE (NEGATIVE); OPIATES, URI NEGATIVE (NEGATIVE); PHENCYCLIDINE,URINE NEGATIVE (NEGATIVE); URINE BARBITURATES NEGATIVE (NEGATIVE); URINE BENZODIAZEPINES NEGATIVE (NEGATIVE)
[2022-10-11 14:36] LABS: COCAINE, UR NEGATIVE (NEGATIVE); URINE AMPHETAMINES NEGATIVE (NEGATIVE)
[2022-10-11] MEDS ORDERED: DOCUSATE SODIUM 100 MG CAPSULE (FP) PO PRN (23:52)
[2022-10-12] MEDS: INSULIN SLIDING SCALE (NOVOLOG) 1 VIAL SQ SCH ×4 (06:47→21:54)
[2022-10-12 07:57] LABS: BASO % 0.8 % (0-2.0); EOS % 1.2 % (0-4.5); HEMATOCRIT 35.4 % (32.4-45.2); HEMOGLOBIN 11.4 GM/dL (10.7-15.3); LYMPH % 50.2 % (8-40); MCH 29.7 pg (25.7-33.7); MCHC 32.1 g/dl (32.0-36.0); MEAN CELL VOLUME 92.6 fl (80-96); MEAN PLT VOLUME 11.2 fl (7.5-11.1); MONO % 8.3 % (3.8-10.2); NEUT % 39.5 % (42.8-82.8); PLATELET COUNT 284 10^3/uL (134-434); RBC 3.82 M/mm3 (3.60-5.2); RDW 13.9 % (11.6-15.6)
[2022-10-12] MEDS: LOSARTAN POTASSIUM 50 MG TABLET PO SCH (10:10)
[2022-10-12] MEDS: PANTOPRAZOLE 40 MG TABLET PO SCH (10:10)
[2022-10-12] MEDS: FUROSEMIDE 20 MG TABLET (FP) PO SCH (10:10)
[2022-10-12] MEDS: amLODIPine BESYLATE 10 MG TABLET (FP) PO SCH (10:10)
[2022-10-12 10:43] LABS: POTASSIUM 4.7 mmol/L (3.5-5.1)
[2022-10-12 10:46] LABS: BLOOD UREA NITROGEN 32.1 mg/dL (7-18); CALCIUM 10.4 mg/dL (8.5-10.1)
[2022-10-12 10:50] LABS: CREATININE 1.1 mg/dL (0.55-1.3)
[2022-10-12] MEDS: ENOXAPARIN NA (PORCINE) 40 MG/0.4 ML DISP.SYRIN SQ SCH (12:36)
[2022-10-12] MEDS ORDERED: INSULIN SLIDING SCALE (NOVOLOG) 1 VIAL SQ ONE (21:23)
[2022-10-13] MEDS: INSULIN SLIDING SCALE (NOVOLOG) 1 VIAL SQ SCH ×4 (06:54→21:17)
[2022-10-13 07:39] LABS: BASO % 0.3 % (0-2.0); EOS % 1.3 % (0-4.5); HEMATOCRIT 34.4 % (32.4-45.2); HEMOGLOBIN 11.5 GM/dL (10.7-15.3); LYMPH % 46.1 % (8-40); MCH 30.8 pg (25.7-33.7); MCHC 33.4 g/dl (32.0-36.0); MEAN CELL VOLUME 92.3 fl (80-96); MONO % 8.9 % (3.8-10.2); NEUT % 43.4 % (42.8-82.8); PLATELET COUNT 291 10^3/uL (134-434); RBC 3.73 M/mm3 (3.60-5.2); RDW 13.7 % (11.6-15.6); WHITE BLOOD COUNT 9.3 K/mm3 (4.0-10.0)
[2022-10-13 07:57] LABS: POTASSIUM 4.5 mmol/L (3.5-5.1)
[2022-10-13 07:58] LABS: ALBUMIN 3.4 g/dl (3.4-5.0); BLOOD UREA NITROGEN 34.8 mg/dL (7-18); CALCIUM 10.2 mg/dL (8.5-10.1)
[2022-10-13 08:01] LABS: CREATININE 1.2 mg/dL (0.55-1.3)
[2022-10-13 08:03] LABS: BILIRUBIN,TOTAL 1.1 mg/dL (0.2-1)
[2022-10-13] MEDS ORDERED: LORazepam 2 MG/ML SDV VIAL IVPUSH PRN (08:50)
[2022-10-13] MEDS ORDERED: LORazepam 2 MG/ML SDV VIAL IM PRN (09:28)
[2022-10-13] MEDS ORDERED: HALOPERIDOL LACTATE 5 MG/ML IM ONE (09:29)
[2022-10-13] MEDS: FUROSEMIDE 20 MG TABLET (FP) PO SCH (10:49)
[2022-10-13] MEDS: LOSARTAN POTASSIUM 50 MG TABLET PO SCH (10:49)
[2022-10-13] MEDS: amLODIPine BESYLATE 10 MG TABLET (FP) PO SCH (10:49)
[2022-10-13] MEDS: ESCITALOPRAM OXALATE 10 MG TABLET PO SCH (10:49)
[2022-10-13] MEDS: PANTOPRAZOLE 40 MG TABLET PO SCH (10:49)
[2022-10-13] MEDS: ENOXAPARIN NA (PORCINE) 40 MG/0.4 ML DISP.SYRIN SQ SCH (10:50)
[2022-10-13] MEDS: OLANZapine 5 MG TABLET PO SCH ×2 (10:51→21:17)
[2022-10-14] MEDS: INSULIN SLIDING SCALE (NOVOLOG) 1 VIAL SQ SCH ×4 (06:20→21:07)
[2022-10-14] MEDS ORDERED: DAPTOMYCIN 300 MG in SODIUM CHLORIDE 50 ML IVPB SCH (10:00)
[2022-10-14] MEDS: ENOXAPARIN NA (PORCINE) 40 MG/0.4 ML DISP.SYRIN SQ SCH (10:36)
[2022-10-14] MEDS: FUROSEMIDE 20 MG TABLET (FP) PO SCH (10:36)
[2022-10-14] MEDS: PANTOPRAZOLE 40 MG TABLET PO SCH (10:36)
[2022-10-14] MEDS: LOSARTAN POTASSIUM 50 MG TABLET PO SCH (10:36)
[2022-10-14] MEDS: amLODIPine BESYLATE 10 MG TABLET (FP) PO SCH (10:36)
[2022-10-14] MEDS: ESCITALOPRAM OXALATE 10 MG TABLET PO SCH (10:36)
[2022-10-14] MEDS: OLANZapine 5 MG TABLET PO SCH ×2 (10:36→21:07)
[2022-10-14] MEDS: NITROFURANTOIN MACROCRYSTAL 50 MG CAPSULE (FP) PO SCH (17:49)
[2022-10-15] MEDS: NITROFURANTOIN MACROCRYSTAL 50 MG CAPSULE (FP) PO SCH ×4 (00:11→17:44)
[2022-10-15] MEDS: INSULIN SLIDING SCALE (NOVOLOG) 1 VIAL SQ SCH ×4 (06:15→21:59)
[2022-10-15] MEDS: ENOXAPARIN NA (PORCINE) 40 MG/0.4 ML DISP.SYRIN SQ SCH (10:22)
[2022-10-15] MEDS: amLODIPine BESYLATE 10 MG TABLET (FP) PO SCH (10:23)
[2022-10-15] MEDS: PANTOPRAZOLE 40 MG TABLET PO SCH (10:23)
[2022-10-15] MEDS: FUROSEMIDE 20 MG TABLET (FP) PO SCH (10:23)
[2022-10-15] MEDS: ESCITALOPRAM OXALATE 10 MG TABLET PO SCH (10:23)
[2022-10-15] MEDS: LOSARTAN POTASSIUM 50 MG TABLET PO SCH (10:23)
[2022-10-15] MEDS: OLANZapine 5 MG TABLET PO SCH ×2 (10:23→21:46)
[2022-10-16] MEDS: NITROFURANTOIN MACROCRYSTAL 50 MG CAPSULE (FP) PO SCH ×5 (00:31→23:05)
[2022-10-16] MEDS: INSULIN SLIDING SCALE (NOVOLOG) 1 VIAL SQ SCH ×4 (06:02→22:13)
[2022-10-16] MEDS: OLANZapine 5 MG TABLET PO SCH ×2 (10:08→22:14)
[2022-10-16] MEDS: ENOXAPARIN NA (PORCINE) 40 MG/0.4 ML DISP.SYRIN SQ SCH (10:08)
[2022-10-16] MEDS: ESCITALOPRAM OXALATE 10 MG TABLET PO SCH (10:08)
[2022-10-16] MEDS: LOSARTAN POTASSIUM 50 MG TABLET PO SCH (10:08)
[2022-10-16] MEDS: amLODIPine BESYLATE 10 MG TABLET (FP) PO SCH (10:08)
[2022-10-16] MEDS: FUROSEMIDE 20 MG TABLET (FP) PO SCH (10:08)
[2022-10-16] MEDS: PANTOPRAZOLE 40 MG TABLET PO SCH (10:08)
[2022-10-17] MEDS: NITROFURANTOIN MACROCRYSTAL 50 MG CAPSULE (FP) PO SCH ×4 (05:49→23:28)
[2022-10-17] MEDS: INSULIN SLIDING SCALE (NOVOLOG) 1 VIAL SQ SCH ×4 (06:38→21:41)
[2022-10-17] MEDS: ESCITALOPRAM OXALATE 10 MG TABLET PO SCH (10:18)
[2022-10-17] MEDS: LOSARTAN POTASSIUM 50 MG TABLET PO SCH (10:18)
[2022-10-17] MEDS: PANTOPRAZOLE 40 MG TABLET PO SCH (10:18)
[2022-10-17] MEDS: FUROSEMIDE 20 MG TABLET (FP) PO SCH (10:18)
[2022-10-17] MEDS: amLODIPine BESYLATE 10 MG TABLET (FP) PO SCH (10:18)
[2022-10-17] MEDS: OLANZapine 5 MG TABLET PO SCH ×2 (10:18→21:38)
[2022-10-17] MEDS: ENOXAPARIN NA (PORCINE) 40 MG/0.4 ML DISP.SYRIN SQ SCH (10:18)
[2022-10-18] MEDS: NITROFURANTOIN MACROCRYSTAL 50 MG CAPSULE (FP) PO SCH ×4 (06:04→23:02)
[2022-10-18] MEDS: INSULIN SLIDING SCALE (NOVOLOG) 1 VIAL SQ SCH ×4 (06:10→22:07)
[2022-10-18] MEDS: LOSARTAN POTASSIUM 50 MG TABLET PO SCH (09:25)
[2022-10-18] MEDS: ENOXAPARIN NA (PORCINE) 40 MG/0.4 ML DISP.SYRIN SQ SCH (09:26)
[2022-10-18] MEDS: FUROSEMIDE 20 MG TABLET (FP) PO SCH (09:26)
[2022-10-18] MEDS: ESCITALOPRAM OXALATE 10 MG TABLET PO SCH (09:26)
[2022-10-18] MEDS: OLANZapine 5 MG TABLET PO SCH (09:26)
[2022-10-18] MEDS: PANTOPRAZOLE 40 MG TABLET PO SCH (09:26)
[2022-10-18] MEDS: amLODIPine BESYLATE 10 MG TABLET (FP) PO SCH (09:26)
[2022-10-18] MEDS: LORazepam 1 MG TABLET PO SCH (22:02)
[2022-10-18] MEDS: OLANZapine 10 MG TABLET PO SCH (22:35)
[2022-10-19] MEDS: NITROFURANTOIN MACROCRYSTAL 50 MG CAPSULE (FP) PO SCH ×3 (06:06→17:05)
[2022-10-19] MEDS: LORazepam 1 MG TABLET PO SCH ×3 (06:06→21:58)
[2022-10-19] MEDS: INSULIN SLIDING SCALE (NOVOLOG) 1 VIAL SQ SCH ×4 (06:06→22:05)
[2022-10-19] MEDS: PANTOPRAZOLE 40 MG TABLET PO SCH (09:51)
[2022-10-19] MEDS: amLODIPine BESYLATE 10 MG TABLET (FP) PO SCH (09:51)
[2022-10-19] MEDS: OLANZapine 10 MG TABLET PO SCH ×2 (09:51→21:58)
[2022-10-19] MEDS: FUROSEMIDE 20 MG TABLET (FP) PO SCH (09:51)
[2022-10-19] MEDS: ENOXAPARIN NA (PORCINE) 40 MG/0.4 ML DISP.SYRIN SQ SCH (09:51)
[2022-10-19] MEDS: LOSARTAN POTASSIUM 50 MG TABLET PO SCH (09:51)
[2022-10-19] MEDS: ESCITALOPRAM OXALATE 10 MG TABLET PO SCH (09:51)
[2022-10-20] MEDS: NITROFURANTOIN MACROCRYSTAL 50 MG CAPSULE (FP) PO SCH ×2 (00:23→06:18)
[2022-10-20 00:36] VITALS: RESP 17
[2022-10-20] MEDS: LORazepam 1 MG TABLET PO SCH (06:18)
[2022-10-20] MEDS: INSULIN SLIDING SCALE (NOVOLOG) 1 VIAL SQ SCH (06:25)
[2022-10-20 06:55] VITALS: TEMP 97.5
[2022-10-20] MEDS: ESCITALOPRAM OXALATE 10 MG TABLET PO SCH (09:55)
[2022-10-20] MEDS: LOSARTAN POTASSIUM 50 MG TABLET PO SCH (09:55)
[2022-10-20] MEDS: PANTOPRAZOLE 40 MG TABLET PO SCH (09:55)
[2022-10-20] MEDS: OLANZapine 10 MG TABLET PO SCH (09:55)
[2022-10-20] MEDS: FUROSEMIDE 20 MG TABLET (FP) PO SCH (09:55)
[2022-10-20] MEDS: amLODIPine BESYLATE 10 MG TABLET (FP) PO SCH (09:55)
[2022-10-20 10:46] VITALS: BP 125/63; PULSE 60
== END 2022-10-20 10:49 | disposition home or self-care (01) ==
LOC: JER 09:45 → JERBED 20:33 → J4S 22:18
PROVIDERS: ADMIT Internal Medicine; ATTEND Family Medicine
PROC: 3E023GC Introduction of Other Therapeutic Substance into Muscle, Percutaneous Approach (ICD-10-PCS; principal; 2022-10-11)
PROC: 3E013VG Introduction of Insulin into Subcutaneous Tissue, Percutaneous Approach (ICD-10-PCS; 2022-10-11)
PROC: 3E023GC Introduction of Other Therapeutic Substance into Muscle, Percutaneous Approach (ICD-10-PCS; 2022-10-11)
DX: T50.905A Adverse effect of unspecified drugs, medicaments and biological substances, initial encounter (principal); G20 Parkinson's disease; F32.A Depression, unspecified; Z91.51 Personal history of suicidal behavior; I10 Essential (primary) hypertension; E78.5 Hyperlipidemia, unspecified; E11.40 Type 2 diabetes mellitus with diabetic neuropathy, unspecified; Z86.73 Personal history of transient ischemic attack (TIA), and cerebral infarction without residual deficits; F03.90 Unspecified dementia, unspecified severity, without behavioral disturbance, psychotic disturbance, mood disturbance, and anxiety; G89.29 Other chronic pain; M54.50 Low back pain, unspecified; E66.8 Other obesity; Z68.36 Body mass index [BMI] 36.0-36.9, adult
CPT/HCPCS: 36415; 71045-TC-FY; 80048; 80053; 80164; 80307; 81003; 82140; 82550; 82803; 82962; 83735; 83880; 84100; 84484; 85025; 85610; 86850; 86900; 86901; 87086; 87186; 93005; 93010; 96372; 97116-GP; 97161-GP; 99285-25; G0378

== ENCOUNTER 2023-05-03 10:46 | Emergency (ER) | payer OTHER ==
[2023-05-03 11:26] VITALS: BMI 30.2
[2023-05-03 13:40] LABS: BASO % 0.7 % (0-2.0); EOS % 2.5 % (0-4.5); HEMATOCRIT 36.9 % (32.4-45.2); HEMOGLOBIN 12.1 GM/dL (10.7-15.3); LYMPH % 51.8 % (8-40); MCH 29.9 pg (25.7-33.7); MCHC 32.8 g/dl (32.0-36.0); MEAN PLT VOLUME 10.4 fl (7.5-11.1); MONO % 11.2 % (3.8-10.2); NEUT % 33.8 % (42.8-82.8); PLATELET COUNT 267 10^3/uL (134-434); RBC 4.06 M/mm3 (3.60-5.2); RDW 13.7 % (11.6-15.6); VENOUS BASE EXCESS 2.1 mmol/L (-2-2); VENOUS O2 SATURATION 21.7 % (70-80); VENOUS PH 7.356 (7.310-7.410); WHITE BLOOD COUNT 8.2 K/mm3 (4.0-10.0)
[2023-05-03 13:44] LABS: URINE APPEARANCE CLEAR; URINE BILIRUBIN NEGATIVE (NEGATIVE); URINE COLOR YELLOW; URINE GLUCOSE (UA) 3+ (NEGATIVE); URINE KETONE NEGATIVE (NEGATIVE); URINE LEUK ESTERASE NEGATIVE (NEGATIVE); URINE NITRITE NEGATIVE (NEGATIVE); URINE PROTEIN NEGATIVE (NEGATIVE); URINE UROBILINOGEN 0.2 mg/dL (0.2-1.0)
[2023-05-03 13:58] LABS: CHLORIDE 108 mmol/L (98-107); SODIUM 139 mmol/L (136-145)
[2023-05-03 14:03] LABS: ANION GAP 4 mmol/L (4-13); BLOOD UREA NITROGEN 20.1 mg/dL (7-18); CALCIUM 9.5 mg/dL (8.5-10.1); CO2 27 mmol/L (21-32); GLUCOSE,RANDOM 118 mg/dL (74-106)
[2023-05-03 14:04] LABS: ALBUMIN 3.4 g/dl (3.4-5.0)
[2023-05-03 14:06] LABS: CREATININE 1.1 mg/dL (0.55-1.3); SGOT/AST 32 U/L (15-37); SGPT/ALT 43 U/L (13-61)
[2023-05-03 14:08] LABS: ALK PHOS 134 U/L (45-117); BILIRUBIN,TOTAL 0.5 mg/dL (0.2-1); TOT PROT 7.3 g/dl (6.4-8.2)
[2023-05-03 14:11] LABS: N-TERMINAL BNP 35.2 pg/ml (5-125)
[2023-05-03 16:55] VITALS: BP 126/75; PULSE 97; RESP 20; TEMP 97.8
== END 2023-05-03 17:01 | disposition home or self-care (01) ==
LOC: JER 10:46
DX: T42.4X1A Poisoning by benzodiazepines, accidental (unintentional), initial encounter (principal); Z20.822 Contact with and (suspected) exposure to COVID-19
CPT/HCPCS: 0241U-QW; 36415; 70450-TC; 71045-TC-FY; 80053; 80307; 81003; 82803; 83605; 83880; 84484; 85025; 85379; 86140; 93005; 93010; 99285-25

== ENCOUNTER 2023-05-25 17:40 | Inpatient (IN) | payer OTHER ==
[2023-05-25] MEDS ORDERED: RAPID SEQUENCE INTUBATION KIT NR ONE ×2 (17:45→17:57)
[2023-05-25] MEDS ORDERED: PROPOFOL 1,000,000 MCG/100 ML VIAL ONE (18:08)
[2023-05-25] MEDS: PROPOFOL 1,000,000 MCG/100 ML VIAL IVPB SCH (18:45)
[2023-05-25] MEDS: SODIUM CHLORIDE 0.9% 500 ML INFUS.BAG IV ONE ×2 (18:58→21:08)
[2023-05-25] MEDS: ROCURONIUM BROMIDE 50 MG/5 ML VIAL IVPUSH ONE (18:58)
[2023-05-25] MEDS: ETOMIDATE 40 MG/20 ML VIAL IVPUSH ONE (18:58)
[2023-05-25 19:10] LABS: BASO % 0.3 % (0-2.0); EOS % 0.2 % (0-4.5); HEMATOCRIT 42.5 % (32.4-45.2); LYMPH % 29.3 % (8-40); MCH 30.1 pg (25.7-33.7); MCHC 33.1 g/dl (32.0-36.0); MEAN PLT VOLUME 11.5 fl (7.5-11.1); MONO % 5.5 % (3.8-10.2); NEUT % 64.7 % (42.8-82.8); PLATELET COUNT 305 10^3/uL (134-434); RBC 4.67 M/mm3 (3.60-5.2); RDW 14.1 % (11.6-15.6); WHITE BLOOD COUNT 14.7 K/mm3 (4.0-10.0)
[2023-05-25 19:21] LABS: URINE APPEARANCE CLEAR; URINE BILIRUBIN NEGATIVE (NEGATIVE); URINE COLOR YELLOW; URINE GLUCOSE (UA) 3+ (NEGATIVE); URINE KETONE NEGATIVE (NEGATIVE); URINE LEUK ESTERASE NEGATIVE (NEGATIVE); URINE NITRITE NEGATIVE (NEGATIVE); URINE PROTEIN NEGATIVE (NEGATIVE); URINE UROBILINOGEN 0.2 mg/dL (0.2-1.0)
[2023-05-25 19:21] LABS: CHLORIDE 99 mmol/L (98-107); POTASSIUM 5.1 mmol/L (3.5-5.1); SODIUM 131 mmol/L (136-145)
[2023-05-25 19:23] LABS: CALCIUM 9.6 mg/dL (8.5-10.1)
[2023-05-25 19:24] LABS: ALBUMIN 3.7 g/dl (3.4-5.0); ANION GAP 9 mmol/L (4-13); BLOOD UREA NITROGEN 27.1 mg/dL (7-18); CO2 22 mmol/L (21-32)
[2023-05-25 19:27] LABS: PROTHROMBIN TIME (PATIENT) 11.6 SEC (9.7-13.0)
[2023-05-25 19:27] LABS: CREATININE 1.3 mg/dL (0.55-1.3); SGOT/AST 30 U/L (15-37); SGPT/ALT 49 U/L (13-61)
[2023-05-25 19:28] LABS: TOT PROT 7.1 g/dl (6.4-8.2)
[2023-05-25 19:29] LABS: BILIRUBIN,TOTAL 0.8 mg/dL (0.2-1)
[2023-05-25 19:30] LABS: ALK PHOS 135 U/L (45-117)
[2023-05-25 19:53] LABS: ACTIVATED PTT 23.9 SECONDS (25.2-36.5)
[2023-05-25 19:55] LABS: LACTIC ACID 2.6 mmol/L (0.4-2.0)
[2023-05-25 20:30] LABS: GLUCOSE,RANDOM 497 mg/dL (74-106)
[2023-05-25] MEDS: PHENYLEPHRINE HCL 10,000 MCG in DEXTROSE 5%-WATER - 499 ML IV SCH (20:51)
[2023-05-25] MEDS: INSULIN (NOVOLOG) ASPART 100 UNITS/ML 10ML VIAL SQ ONE (21:02)
[2023-05-25] MEDS ORDERED: NOREPINEPHRINE BITARTRATE 4 MG/4 ML ML IV ONE (21:33)
[2023-05-25] MEDS: NOREPINEPHRINE BITARTRATE 4,000 MCG in DEXTROSE 5%-WATER - 496 ML IV SCH (21:43)
[2023-05-25] MEDS: INSULIN ASPART SLIDING SCALE (NOVOLOG) 1 VIAL SQ SCH (21:49)
[2023-05-25] MEDS: MUPIROCIN 2% TOPICAL OINTMENT FOR DECOLONIZATION NS SCH (22:00)
[2023-05-25] MEDS: CEFTRIAXONE 1 GM in DEXTROSE 5%-WATER - 50 ML IVPB SCH (23:28)
[2023-05-25] MEDS: CHLORHEXIDINE GLUCONATE 4% CLEANSER FOR DECOLONIZATION TP SCH (23:28)
[2023-05-25] MEDS: AZITHROMYCIN IVPB 500 MG/250 ML BAG IVPB SCH (23:30)
[2023-05-25] MEDS: DEXMEDETOMIDINE PREMIX 400 MCG/100 ML BAG IVPB SCH (23:31)
[2023-05-25 23:52] LABS: ARTERIAL BLD GAS O2 SATURATION 96.8 % (95-98); ARTERIAL BLOOD GAS BASE EXCESS -8.1 mmol/L (-2-2); ARTERIAL BLOOD GAS PO2 98.2 mmHg (80-100); ARTERIAL BLOOD GAS pH 7.289 (7.350-7.450)
[2023-05-26 00:21] LABS: LACTIC ACID 3.6 mmol/L (0.4-2.0)
[2023-05-26 00:49] LABS: POTASSIUM 4.4 mmol/L (3.5-5.1)
[2023-05-26 00:52] LABS: ALBUMIN 3.2 g/dl (3.4-5.0); BLOOD UREA NITROGEN 27.6 mg/dL (7-18); MAGNESIUM 1.8 mg/dL (1.8-2.4)
[2023-05-26 00:55] LABS: CREATININE 1.4 mg/dL (0.55-1.3); PHOSPHOROUS 3.7 mg/dL (2.5-4.9)
[2023-05-26 00:56] LABS: TOT PROT 6.4 g/dl (6.4-8.2)
[2023-05-26 00:57] LABS: BILIRUBIN,TOTAL 0.9 mg/dL (0.2-1)
[2023-05-26] MEDS: PROPOFOL 1,000,000 MCG/100 ML VIAL IVPB SCH (06:36)
[2023-05-26] MEDS: NOREPINEPHRINE 0.9 % NACL 8 MG/250 ML BAG IVPB SCH (06:37)
[2023-05-26 07:42] LABS: HEMATOCRIT 33.6 % (32.4-45.2); HEMOGLOBIN 11.1 GM/dL (10.7-15.3); MCH 30.3 pg (25.7-33.7); MCHC 33.2 g/dl (32.0-36.0); MEAN CELL VOLUME 91.2 fl (80-96); MEAN PLT VOLUME 10.2 fl (7.5-11.1); PLATELET COUNT 221 10^3/uL (134-434); RBC 3.68 M/mm3 (3.60-5.2); RDW 13.5 % (11.6-15.6); WHITE BLOOD COUNT 23.5 K/mm3 (4.0-10.0)
[2023-05-26 07:46] LABS: INR 1.04 (0.83-1.09); PROTHROMBIN TIME (PATIENT) 12.1 SEC (9.7-13.0)
[2023-05-26 07:49] LABS: ACTIVATED PTT 22.6 SECONDS (25.2-36.5)
[2023-05-26 07:56] LABS: POTASSIUM 4.8 mmol/L (3.5-5.1)
[2023-05-26 08:10] LABS: CALCIUM 9.1 mg/dL (8.5-10.1)
[2023-05-26 08:11] LABS: MAGNESIUM 2.2 mg/dL (1.8-2.4)
[2023-05-26 08:12] LABS: ALBUMIN 3.3 g/dl (3.4-5.0)
[2023-05-26 08:15] LABS: CREATININE 1.3 mg/dL (0.55-1.3); PHOSPHOROUS 3.8 mg/dL (2.5-4.9)
[2023-05-26 08:16] LABS: TOT PROT 6.6 g/dl (6.4-8.2)
[2023-05-26 08:17] LABS: BILIRUBIN,TOTAL 0.9 mg/dL (0.2-1)
[2023-05-26] MEDS ORDERED: INSULIN (NOVOLOG) ASPART 100 UNITS/ML 10ML VIAL ONE (09:09)
[2023-05-26] MEDS: SODIUM CHLORIDE 0.9% 500 ML INFUS.BAG IV ONE (09:14)
[2023-05-26] MEDS: ENOXAPARIN NA (PORCINE) 40 MG/0.4 ML DISP.SYRIN SQ SCH (09:16)
[2023-05-26 09:19] LABS: ANISOCYTOSIS 0; MACROCYTOSIS 0
[2023-05-26] MEDS: PANTOPRAZOLE SODIUM 40 MG VIAL IVPUSH SCH (09:21)
[2023-05-26] MEDS: AMPICILLIN NA/SULBACTAM NA 3 GM in DEXTROSE 5%-WATER 100 ML IVPB SCH (12:30)
[2023-05-26] MEDS: SODIUM CHLORIDE 1,000 ML IV SCH (12:30)
[2023-05-26 12:45] LABS: ARTERIAL BLD GAS O2 SATURATION 98.6 % (95-98); ARTERIAL BLOOD GAS BASE EXCESS -6.7 mmol/L (-2-2); ARTERIAL BLOOD GAS PO2 139.5 mmHg (80-100); ARTERIAL BLOOD GAS pH 7.335 (7.350-7.450)
[2023-05-26 12:47] LABS: ALLENS TEST POSITIVE
[2023-05-26 12:48] LABS: VENT MODE PSVPLUS 6
[2023-05-26] MEDS ORDERED: COLLAGENASE CLOSTRIDIUM HIST. 30 GRAMS TUBE TP SCH (14:15)
[2023-05-26] MEDS ORDERED: RAPID SEQUENCE INTUBATION KIT NR ONE (18:01)
[2023-05-26] MEDS: INSULIN (NOVOLOG) ASPART 100 UNITS/ML 10ML VIAL SQ ONE (22:15)
[2023-05-27 07:48] LABS: BASO % 0.1 % (0-2.0); EOS % 0.1 % (0-4.5); HEMATOCRIT 34.2 % (32.4-45.2); HEMOGLOBIN 11.1 GM/dL (10.7-15.3); LYMPH % 10.2 % (8-40); MCH 29.5 pg (25.7-33.7); MCHC 32.4 g/dl (32.0-36.0); MEAN PLT VOLUME 9.8 fl (7.5-11.1); MONO % 10.1 % (3.8-10.2); NEUT % 79.5 % (42.8-82.8); PLATELET COUNT 195 10^3/uL (134-434); RBC 3.75 M/mm3 (3.60-5.2); WHITE BLOOD COUNT 19.4 K/mm3 (4.0-10.0)
[2023-05-27 08:06] LABS: POTASSIUM 4.5 mmol/L (3.5-5.1)
[2023-05-27 08:16] LABS: CALCIUM 8.8 mg/dL (8.5-10.1)
[2023-05-27 08:17] LABS: BLOOD UREA NITROGEN 18.8 mg/dL (7-18); MAGNESIUM 2.1 mg/dL (1.8-2.4)
[2023-05-27 08:19] LABS: CREATININE 1.1 mg/dL (0.55-1.3)
[2023-05-27 08:21] LABS: BILIRUBIN,TOTAL 0.8 mg/dL (0.2-1)
[2023-05-27] MEDS ORDERED: AMPICILLIN NA/SULBACTAM NA 3 GM VIAL ONE (08:45)
[2023-05-27] MEDS: AZITHROMYCIN IVPB 500 MG in DEXTROSE 5%-WATER - 250 ML IVPB SCH (10:26)
[2023-05-27] MEDS ORDERED: INSULIN (NOVOLOG) ASPART 100 UNITS/ML 10ML VIAL ONE (13:03)
[2023-05-28 06:46] LABS: HEMATOCRIT 30.9 % (32.4-45.2); LYMPH % 10.6 % (8-40); MCH 29.6 pg (25.7-33.7); MCHC 32.5 g/dl (32.0-36.0); MEAN CELL VOLUME 91.1 fl (80-96); MEAN PLT VOLUME 10.2 fl (7.5-11.1); MONO % 8.4 % (3.8-10.2); PLATELET COUNT 165 10^3/uL (134-434); RBC 3.39 M/mm3 (3.60-5.2); RDW 13.9 % (11.6-15.6); WHITE BLOOD COUNT 17.8 K/mm3 (4.0-10.0)
[2023-05-28 06:58] LABS: POTASSIUM 4.1 mmol/L (3.5-5.1)
[2023-05-28 07:01] LABS: CALCIUM 9.1 mg/dL (8.5-10.1)
[2023-05-28 07:02] LABS: ALBUMIN 2.4 g/dl (3.4-5.0); BLOOD UREA NITROGEN 15.5 mg/dL (7-18); MAGNESIUM 1.9 mg/dL (1.8-2.4)
[2023-05-28 07:05] LABS: CREATININE 0.9 mg/dL (0.55-1.3); PHOSPHOROUS 3.7 mg/dL (2.5-4.9)
[2023-05-28 07:06] LABS: BILIRUBIN,TOTAL 0.6 mg/dL (0.2-1); TOT PROT 5.4 g/dl (6.4-8.2)
[2023-05-28] MEDS: AZITHROMYCIN IVPB 500 MG/250 ML BAG IVPB SCH (09:58)
[2023-05-28] MEDS: SODIUM CHLORIDE 0.45% 1,000 ML IV SCH (10:23)
[2023-05-28 11:28] LABS: METHADONE, UR NEGATIVE (NEGATIVE); PHENCYCLIDINE,URINE NEGATIVE (NEGATIVE); URINE BENZODIAZEPINES NEGATIVE (NEGATIVE)
[2023-05-28 11:29] LABS: COCAINE, UR NEGATIVE (NEGATIVE); OPIATES, URI NEGATIVE (NEGATIVE); URINE AMPHETAMINES NEGATIVE (NEGATIVE); URINE BARBITURATES NEGATIVE (NEGATIVE)
[2023-05-29 06:35] LABS: BASO % 0.3 % (0-2.0); EOS % 0.2 % (0-4.5); HEMATOCRIT 30.5 % (32.4-45.2); LYMPH % 19.6 % (8-40); MCH 29.7 pg (25.7-33.7); MCHC 32.8 g/dl (32.0-36.0); MEAN CELL VOLUME 90.6 fl (80-96); MEAN PLT VOLUME 10.5 fl (7.5-11.1); MONO % 10.6 % (3.8-10.2); NEUT % 69.3 % (42.8-82.8); PLATELET COUNT 159 10^3/uL (134-434); RBC 3.36 M/mm3 (3.60-5.2); WHITE BLOOD COUNT 15.9 K/mm3 (4.0-10.0)
[2023-05-29 06:49] LABS: POTASSIUM 3.8 mmol/L (3.5-5.1)
[2023-05-29 06:54] LABS: ALBUMIN 2.4 g/dl (3.4-5.0)
[2023-05-29 06:55] LABS: BLOOD UREA NITROGEN 22.3 mg/dL (7-18); MAGNESIUM 2.5 mg/dL (1.8-2.4)
[2023-05-29 06:58] LABS: PHOSPHOROUS 3.1 mg/dL (2.5-4.9)
[2023-05-29 06:59] LABS: BILIRUBIN,TOTAL 0.7 mg/dL (0.2-1); TOT PROT 5.4 g/dl (6.4-8.2)
[2023-05-29 07:04] LABS: CALCIUM 9.1 mg/dL (8.5-10.1); CREATININE 0.7 mg/dL (0.55-1.3)
[2023-05-29] MEDS: ACETAMINOPHEN 1000 MG/100 ML BAG IVPB PRN (10:20)
[2023-05-30 06:43] LABS: BASO % 0.2 % (0-2.0); EOS % 1.4 % (0-4.5); HEMATOCRIT 29.3 % (32.4-45.2); HEMOGLOBIN 9.9 GM/dL (10.7-15.3); LYMPH % 32.4 % (8-40); MCH 30.5 pg (25.7-33.7); MCHC 33.8 g/dl (32.0-36.0); MEAN CELL VOLUME 90.4 fl (80-96); MONO % 9.9 % (3.8-10.2); NEUT % 56.1 % (42.8-82.8); PLATELET COUNT 166 10^3/uL (134-434); RBC 3.24 M/mm3 (3.60-5.2); RDW 14.2 % (11.6-15.6); WHITE BLOOD COUNT 12.5 K/mm3 (4.0-10.0)
[2023-05-30 07:09] LABS: CALCIUM 9.8 mg/dL (8.5-10.1)
[2023-05-30 07:10] LABS: ALBUMIN 2.4 g/dl (3.4-5.0); MAGNESIUM 2.1 mg/dL (1.8-2.4)
[2023-05-30 07:11] LABS: PHOSPHOROUS 2.1 mg/dL (2.5-4.9)
[2023-05-30 07:13] LABS: BILIRUBIN,TOTAL 0.6 mg/dL (0.2-1); CREATININE 0.7 mg/dL (0.55-1.3); TOT PROT 5.5 g/dl (6.4-8.2)
[2023-05-30 13:50] VITALS: BMI 31.8
[2023-05-30] MEDS ORDERED: ACETAMINOPHEN 1000 MG/100 ML BAG IVPB PRN (20:02)
[2023-05-30] MEDS ORDERED: INSULIN (NOVOLOG) ASPART 100 UNITS/ML 10ML VIAL ONE (22:27)
[2023-05-31] MEDS ORDERED: LORazepam 1 MG TABLET PO PRN (10:42)
[2023-05-31] MEDS: amLODIPine BESYLATE 10 MG TABLET (FP) PO SCH (12:26)
[2023-05-31] MEDS: ESCITALOPRAM OXALATE 10 MG TABLET PO SCH (12:26)
[2023-05-31] MEDS: CARBIDOPA/LEVODOPA 25/100 TABLET (FP) PO SCH (16:00)
[2023-05-31] MEDS ORDERED: INSULIN (NOVOLOG) ASPART 100 UNITS/ML 10ML VIAL ONE (17:37)
[2023-05-31] MEDS: OLANZapine 10 MG TABLET PO SCH (21:17)
[2023-06-01] MEDS: LOSARTAN POTASSIUM 50 MG TABLET PO SCH (11:10)
[2023-06-01] MEDS: PANTOPRAZOLE 40 MG TABLET PO SCH (11:10)
[2023-06-01] MEDS ORDERED: INSULIN (NOVOLOG) ASPART 100 UNITS/ML 10ML VIAL ONE (18:13)
[2023-06-02 07:02] LABS: HEMATOCRIT 31.5 % (32.4-45.2); HEMOGLOBIN 10.6 GM/dL (10.7-15.3); MCH 30.5 pg (25.7-33.7); MCHC 33.6 g/dl (32.0-36.0); MEAN CELL VOLUME 90.8 fl (80-96); MEAN PLT VOLUME 10.7 fl (7.5-11.1); PLATELET COUNT 210 10^3/uL (134-434); RBC 3.47 M/mm3 (3.60-5.2); RDW 13.9 % (11.6-15.6); WHITE BLOOD COUNT 11.9 K/mm3 (4.0-10.0)
[2023-06-02 07:15] LABS: POTASSIUM 4.6 mmol/L (3.5-5.1)
[2023-06-02 07:30] LABS: CALCIUM 9.9 mg/dL (8.5-10.1)
[2023-06-02 07:31] LABS: ALBUMIN 2.7 g/dl (3.4-5.0); BLOOD UREA NITROGEN 12.5 mg/dL (7-18)
[2023-06-02 07:34] LABS: CREATININE 0.9 mg/dL (0.55-1.3)
[2023-06-02 07:35] LABS: BILIRUBIN,TOTAL 0.8 mg/dL (0.2-1)
[2023-06-02] MEDS ORDERED: INSULIN (NOVOLOG) ASPART 100 UNITS/ML 10ML VIAL ONE ×2 (08:17→21:28)
[2023-06-02] MEDS ORDERED: RAPID SEQUENCE INTUBATION KIT NR ONE (19:33)
[2023-06-02] MEDS: INSULIN ASPART SLIDING SCALE (NOVOLOG) 1 VIAL SQ SCH (21:39)
[2023-06-02] MEDS: CEFUROXIME AXETIL 250 MG TABLET PO SCH (21:40)
[2023-06-03] MEDS ORDERED: INSULIN (NOVOLOG) ASPART 100 UNITS/ML 10ML VIAL ONE ×3 (05:30→13:14)
[2023-06-03 08:06] LABS: BASO % 0.5 % (0-2.0); EOS % 3.3 % (0-4.5); HEMATOCRIT 31.4 % (32.4-45.2); HEMOGLOBIN 10.2 GM/dL (10.7-15.3); LYMPH % 36.8 % (8-40); MCH 29.7 pg (25.7-33.7); MCHC 32.5 g/dl (32.0-36.0); MEAN CELL VOLUME 91.3 fl (80-96); MEAN PLT VOLUME 10.1 fl (7.5-11.1); MONO % 11.6 % (3.8-10.2); NEUT % 47.8 % (42.8-82.8); PLATELET COUNT 245 10^3/uL (134-434); RBC 3.44 M/mm3 (3.60-5.2); RDW 13.9 % (11.6-15.6); WHITE BLOOD COUNT 10.2 K/mm3 (4.0-10.0)
[2023-06-03] MEDS: ENOXAPARIN NA (PORCINE) 40 MG/0.4 ML DISP.SYRIN SQ SCH (09:27)
[2023-06-03 15:11] VITALS: RESP 18
[2023-06-04] MEDS ORDERED: INSULIN (NOVOLOG) ASPART 100 UNITS/ML 10ML VIAL ONE ×3 (11:55→19:12)
[2023-06-05 07:37] LABS: BASO % 0.8 % (0-2.0); EOS % 2.7 % (0-4.5); HEMATOCRIT 32.4 % (32.4-45.2); HEMOGLOBIN 10.8 GM/dL (10.7-15.3); LYMPH % 43.6 % (8-40); MCH 30.8 pg (25.7-33.7); MCHC 33.4 g/dl (32.0-36.0); MEAN CELL VOLUME 92.3 fl (80-96); MEAN PLT VOLUME 9.8 fl (7.5-11.1); MONO % 11.9 % (3.8-10.2); PLATELET COUNT 318 10^3/uL (134-434); RBC 3.51 M/mm3 (3.60-5.2); RDW 14.2 % (11.6-15.6); WHITE BLOOD COUNT 9.6 K/mm3 (4.0-10.0)
[2023-06-05 07:52] LABS: POTASSIUM 4.6 mmol/L (3.5-5.1)
[2023-06-05 07:53] LABS: CALCIUM 10.3 mg/dL (8.5-10.1)
[2023-06-05] MEDS ORDERED: INSULIN (NOVOLOG) ASPART 100 UNITS/ML 10ML VIAL ONE ×3 (11:26→17:40)
[2023-06-05] MEDS: INSULIN ASPART SLIDING SCALE (NOVOLOG) 1 VIAL SQ SCH (12:43)
[2023-06-06] MEDS ORDERED: INSULIN (NOVOLOG) ASPART 100 UNITS/ML 10ML VIAL ONE ×2 (06:27→11:54)
[2023-06-06] MEDS ORDERED: COLLAGENASE CLOSTRIDIUM HIST. 30 GRAMS TUBE TP SCH (10:15)
[2023-06-06 14:11] VITALS: BP 125/64; PULSE 79; TEMP 99.1
== END 2023-06-06 17:30 | disposition home or self-care (01) | DRG 917 ==
LOC: JER 17:40 → JERBED 19:23 → JICU 22:32 → J8W 06-02 17:37
PROVIDERS: ADMIT Family Medicine; ATTEND Family Medicine
PROC: 05HN33Z Insertion of Infusion Device into Left Internal Jugular Vein, Percutaneous Approach (ICD-10-PCS; principal; 2023-05-26)
PROC: B544ZZA Ultrasonography of Left Jugular Veins, Guidance (ICD-10-PCS; 2023-05-26)
PROC: 0BH17EZ Insertion of Endotracheal Airway into Trachea, Via Natural or Artificial Opening (ICD-10-PCS; 2023-05-26)
PROC: 5A1945Z Respiratory Ventilation, 24-96 Consecutive Hours (ICD-10-PCS; 2023-05-26)
DX: T42.4X2A Poisoning by benzodiazepines, intentional self-harm, initial encounter (principal); A41.89 Other specified sepsis; R65.21 Severe sepsis with septic shock; J69.0 Pneumonitis due to inhalation of food and vomit; J96.20 Acute and chronic respiratory failure, unspecified whether with hypoxia or hypercapnia; E87.20 Acidosis, unspecified; N17.9 Acute kidney failure, unspecified; E11.65 Type 2 diabetes mellitus with hyperglycemia; I10 Essential (primary) hypertension; M54.50 Low back pain, unspecified; E78.5 Hyperlipidemia, unspecified; I95.9 Hypotension, unspecified; F31.9 Bipolar disorder, unspecified; E83.52 Hypercalcemia; D72.829 Elevated white blood cell count, unspecified; G20.A1 Parkinson's disease without dyskinesia, without mention of fluctuations; F03.90 Unspecified dementia, unspecified severity, without behavioral disturbance, psychotic disturbance, mood disturbance, and anxiety; T14.91XA Suicide attempt, initial encounter; Y92.098 Other place in other non-institutional residence as the place of occurrence of the external cause
CPT/HCPCS: 0241U-QW; 36415; 36600; 70450-TC; 71045-TC-FY; 80048; 80053; 80307; 81003; 82010; 82550; 82570; 82803; 82962; 83605; 83735; 83930; 83935; 84100; 84300; 84484; 85025; 85027; 85610; 85730; 86850; 86900; 86901; 87040; 87086; 87899; 93005; 93010; 94002; 97116-GP; 97161-GP; 99291; J0131

== ENCOUNTER 2024-01-23 09:20 | Emergency (ER) | payer OTHER ==
[2024-01-23 09:26] VITALS: BMI 34.0
[2024-01-23] MEDS ORDERED: ACETAMINOPHEN INJECTION 100 ML ONE ×2 (12:17→12:36)
[2024-01-23 12:26] LABS: BASO % 0.4 % (0-2.0); EOS % 1.4 % (0-4.5); HEMATOCRIT 36.7 % (32.4-45.2); LYMPH % 26.9 % (8-40); MCH 30.2 pg (25.7-33.7); MCHC 32.7 g/dl (32.0-36.0); MEAN CELL VOLUME 92.5 fl (80-96); MEAN PLT VOLUME 9.9 fl (7.5-11.1); NEUT % 64.3 % (42.8-82.8); PLATELET COUNT 268 10^3/uL (134-434); RBC 3.96 M/mm3 (3.60-5.2); RDW 14.5 % (11.6-15.6); WHITE BLOOD COUNT 12.9 K/mm3 (4.0-10.0)
[2024-01-23 12:31] LABS: PH,URINE 6.5 (5.0-8.0); URINE APPEARANCE CLEAR; URINE BILIRUBIN NEGATIVE (NEGATIVE); URINE COLOR YELLOW; URINE GLUCOSE (UA) 3+ (NEGATIVE); URINE KETONE NEGATIVE (NEGATIVE); URINE LEUK ESTERASE NEGATIVE (NEGATIVE); URINE NITRITE NEGATIVE (NEGATIVE); URINE PROTEIN NEGATIVE (NEGATIVE); URINE UROBILINOGEN 0.2 mg/dL (0.2-1.0)
[2024-01-23] MEDS ORDERED: LIDOCAINE 5% TOPICAL PATCH ONE (12:37)
[2024-01-23] MEDS ORDERED: MAG HYDROX/AL HYDROX/SIMETH 30 ML UNIT-DOSE CUP ONE (12:37)
[2024-01-23] MEDS ORDERED: FAMOTIDINE 20 MG/50 ML IVPB 20 MG/50 ML MG IVPB ONE (12:38)
[2024-01-23 12:48] LABS: POTASSIUM 4.8 mmol/L (3.5-5.1)
[2024-01-23 12:50] LABS: ALBUMIN 3.7 g/dl (3.4-5.0); BLOOD UREA NITROGEN 22.4 mg/dL (7-18); CALCIUM 10.1 mg/dL (8.5-10.1); MAGNESIUM 2.3 mg/dL (1.8-2.4)
[2024-01-23 12:54] LABS: CREATININE 1.3 mg/dL (0.55-1.3)
[2024-01-23] MEDS: ACETAMINOPHEN 1000 MG/100 ML BAG IVPB ONE (12:54)
[2024-01-23 12:55] LABS: BILIRUBIN,TOTAL 0.8 mg/dL (0.2-1); TOT PROT 7.1 g/dl (6.4-8.2)
[2024-01-23] MEDS: MAG HYDROX/AL HYDROX/SIMETH 30 ML UNIT-DOSE CUP PO ONE (12:55)
[2024-01-23] MEDS: LIDOCAINE 5% TOPICAL PATCH TP ONE (12:55)
[2024-01-23] MEDS: FAMOTIDINE 20 MG/50 ML IVPB 20 MG/50 ML MG IVPB ONE (12:56)
[2024-01-23 14:14] VITALS: BP 106/60; PULSE 73; RESP 16; TEMP 98.4
[2024-01-23] MEDS ORDERED: LIDOCAINE PATCH REMOVAL MC ONE (22:00)
== END 2024-01-23 19:54 | disposition home or self-care (01) ==
LOC: JER 09:20
PROC: 3E033GC Introduction of Other Therapeutic Substance into Peripheral Vein, Percutaneous Approach (ICD-10-PCS; principal; 2024-01-23)
PROC: 3E033NZ Introduction of Analgesics, Hypnotics, Sedatives into Peripheral Vein, Percutaneous Approach (ICD-10-PCS; 2024-01-23)
DX: M54.50 Low back pain, unspecified (principal); R10.13 Epigastric pain; K52.9 Noninfective gastroenteritis and colitis, unspecified; Z20.822 Contact with and (suspected) exposure to COVID-19
CPT/HCPCS: 0241U-QW; 36415; 74177-TC; 80053; 81003; 83690; 83735; 85025; 87086; 96365; 96375; 99285-25; J0131; Q9967

== ENCOUNTER 2024-06-02 09:26 | Emergency (ER) | payer OTHER ==
[2024-06-02 09:48] VITALS: BMI 29.2
[2024-06-02 10:33] LABS: PH,URINE 7.5 (5.0-8.0); URINE APPEARANCE CLEAR; URINE BILIRUBIN NEGATIVE (NEGATIVE); URINE COLOR YELLOW; URINE GLUCOSE (UA) 3+ (NEGATIVE); URINE KETONE NEGATIVE (NEGATIVE); URINE LEUK ESTERASE NEGATIVE (NEGATIVE); URINE NITRITE NEGATIVE (NEGATIVE); URINE PROTEIN NEGATIVE (NEGATIVE); URINE UROBILINOGEN 0.2 mg/dL (0.2-1.0)
[2024-06-02] MEDS ORDERED: ACETAMINOPHEN INJECTION 100 ML ONE (11:04)
[2024-06-02] MEDS ORDERED: LIDOCAINE 5% TOPICAL PATCH ONE (11:04)
[2024-06-02 11:10] LABS: BASO % 0.5 % (0-2.0); EOS % 1.3 % (0-4.5); HEMATOCRIT 36.4 % (32.4-45.2); LYMPH % 28.7 % (8-40); MCH 29.7 pg (25.7-33.7); MCHC 32.9 g/dl (32.0-36.0); MEAN CELL VOLUME 90.3 fl (80-96); MEAN PLT VOLUME 9.8 fl (7.5-11.1); MONO % 8.6 % (3.8-10.2); NEUT % 60.9 % (42.8-82.8); PLATELET COUNT 268 10^3/uL (134-434); RBC 4.03 M/mm3 (3.60-5.2); RDW 15.1 % (11.6-15.6); WHITE BLOOD COUNT 11.7 K/mm3 (4.0-10.0)
[2024-06-02] MEDS: ACETAMINOPHEN 1000 MG/100 ML BAG IVPB ONE (11:10)
[2024-06-02] MEDS: LIDOCAINE 5% TOPICAL PATCH TP ONE (11:10)
[2024-06-02 12:18] LABS: POTASSIUM 5.5 mmol/L (3.5-5.1)
[2024-06-02 12:21] LABS: ALBUMIN 3.6 g/dl (3.4-5.0); BLOOD UREA NITROGEN 14.5 mg/dL (7-18); CALCIUM 9.5 mg/dL (8.5-10.1)
[2024-06-02 12:27] LABS: BILIRUBIN,TOTAL 0.9 mg/dL (0.2-1); CREATININE 1.3 mg/dL (0.55-1.3); TOT PROT 7.5 g/dl (6.4-8.2)
[2024-06-02 13:07] LABS: POTASSIUM 4.1 mmol/L (3.5-5.1)
[2024-06-02 13:08] LABS: CALCIUM 9.8 mg/dL (8.5-10.1)
[2024-06-02 13:09] LABS: BLOOD UREA NITROGEN 13.9 mg/dL (7-18)
[2024-06-02 13:12] LABS: CREATININE 1.3 mg/dL (0.55-1.3)
[2024-06-02 14:02] VITALS: BP 115/67; PULSE 80; RESP 20; TEMP 98
[2024-06-02] MEDS ORDERED: LIDOCAINE PATCH REMOVAL MC ONE (22:00)
== END 2024-06-02 14:25 | disposition home or self-care (01) ==
LOC: JER 09:26
PROC: 3E033NZ Introduction of Analgesics, Hypnotics, Sedatives into Peripheral Vein, Percutaneous Approach (ICD-10-PCS; principal; 2024-06-02)
DX: M54.50 Low back pain, unspecified (principal); G89.29 Other chronic pain
CPT/HCPCS: 36415; 72131-TC; 80048; 80053; 81003; 85025; 87086; 96374; 99285-25; J0131

== ENCOUNTER 2024-07-07 09:38 | Observation (INO) | payer OTHER ==
[2024-07-07] MEDS ORDERED: ACETAMINOPHEN INJECTION 100 ML ONE (10:19)
[2024-07-07] MEDS ORDERED: LIDOCAINE 4% PATCH TP ONE (10:19)
[2024-07-07 11:07] LABS: EPI CELLS >36 /uL (0-25.1); HYALINE CASTS 2 /uL (0-3.1); PH,URINE 6.5 (5.0-8.0); URINE APPEARANCE CLEAR; URINE BACTERIA 42 /uL (0-1359); URINE BILIRUBIN NEGATIVE (NEGATIVE); URINE COLOR YELLOW; URINE GLUCOSE (UA) 3+ (NEGATIVE); URINE KETONE NEGATIVE (NEGATIVE); URINE LEUK ESTERASE 2+ (NEGATIVE); URINE NITRITE NEGATIVE (NEGATIVE); URINE PROTEIN 1+ (NEGATIVE); URINE RBC 26 /uL (0-23.9); URINE WBC 493 /uL (0-25.8)
[2024-07-07 11:21] LABS: VENOUS BASE EXCESS -3.2 mmol/L (-2-2); VENOUS O2 SATURATION 74.4 % (70-80); VENOUS PCO2 43.8 mmHg (38-52); VENOUS PH 7.332 (7.310-7.410)
[2024-07-07 11:22] LABS: ABSOLUTE IMMATURE GRANULOCYTES 0.07 x10^3/uL (0.0-0.031); BASOPHILS # 0.05 x10^3/uL (0.01-0.08); EOSINOPHIL % 2.2 % (0.7-5.8); HEMATOCRIT 38.2 % (34.1-44.9); MCHC 31.4 g/dl (32.2-35.5); MEAN CELL VOLUME 92.3 fl (79.4-94.8); MEAN PLT VOLUME 12.3 fl (9.4-12.3); MONOCYTE # 0.95 x10^3/uL (0.24-0.86); MONOCYTE % 6.8 % (4.7-12.5); PLATELET COUNT 284 x10^3/uL (182-369); RDW 14.7 % (12.4-16.6)
[2024-07-07] MEDS: SODIUM CHLORIDE 0.9% 500 ML INFUS.BAG IV ONE (11:36)
[2024-07-07] MEDS: ACETAMINOPHEN 1000 MG/100 ML BAG IVPB ONE (11:36)
[2024-07-07 11:38] LABS: POTASSIUM 4.3 mmol/L (3.5-5.1)
[2024-07-07 11:40] LABS: CALCIUM 10.2 mg/dL (8.5-10.1)
[2024-07-07 11:41] LABS: ALBUMIN 3.8 g/dl (3.4-5.0); MAGNESIUM 2.1 mg/dL (1.8-2.4)
[2024-07-07 11:45] LABS: BILIRUBIN,TOTAL 1.1 mg/dL (0.2-1); CREATININE 1.3 mg/dL (0.55-1.3); PHOSPHOROUS 3.1 mg/dL (2.5-4.9); TOT PROT 7.6 g/dl (6.4-8.2)
[2024-07-07] MEDS ORDERED: CEFTRIAXONE 1 G/50 ML PREMIX 50 ML IVPB ONE (12:04)
[2024-07-07] MEDS: LIDOCAINE 4% PATCH TP ONE (12:13)
[2024-07-07] MEDS: CEFTRIAXONE 1,000 MG in DEXTROSE 5%-WATER - 50 ML IVPB ONE (12:13)
[2024-07-07] MEDS ORDERED: INSULIN REGULAR HUMAN 100 UNITS/ML *VIAL ONE (13:01)
[2024-07-07] MEDS: INSULIN REGULAR HUMAN 100 UNITS/ML *VIAL SQ ONE (13:06)
[2024-07-07 16:30] VITALS: BMI 31.5
[2024-07-07] MEDS: ACETAMINOPHEN 325 MG TABLET (FP) PO PRN (20:05)
[2024-07-07] MEDS: INSULIN GLARGINE (LANTUS) 100 UNITS/ML UNITS SQ SCH (21:13)
[2024-07-07] MEDS: LIDOCAINE PATCH REMOVAL MC SCH (21:13)
[2024-07-07] MEDS: HEPARIN NA (PORCINE) 5,000 UNITS/ML 1ML VIAL SQ SCH (21:13)
[2024-07-07] MEDS: INSULIN ASPART SLIDING SCALE (NOVOLOG) 1 VIAL SQ SCH (21:14)
[2024-07-08] MEDS: INSULIN ASPART SLIDING SCALE (NOVOLOG) 1 VIAL SQ SCH (00:03)
[2024-07-08 08:17] LABS: ABSOLUTE IMMATURE GRANULOCYTES 0.03 x10^3/uL (0.0-0.031); BASOPHILS # 0.05 x10^3/uL (0.01-0.08); EOSINOPHIL % 3.7 % (0.7-5.8); EOSINOPHILS # 0.39 x10^3/uL (0.04-0.36); HEMATOCRIT 40.3 % (34.1-44.9); HEMOGLOBIN 12.8 g/dL (11.2-15.7); MCHC 31.8 g/dl (32.2-35.5); MEAN PLT VOLUME 12.5 fl (9.4-12.3); MONOCYTE # 0.71 x10^3/uL (0.24-0.86); MONOCYTE % 6.7 % (4.7-12.5); PLATELET COUNT 306 x10^3/uL (182-369); RDW 14.8 % (12.4-16.6)
[2024-07-08 08:37] LABS: POTASSIUM 4.2 mmol/L (3.5-5.1)
[2024-07-08 08:56] LABS: ALBUMIN 3.8 g/dl (3.4-5.0); BLOOD UREA NITROGEN 13.6 mg/dL (7-18); CALCIUM 10.2 mg/dL (8.5-10.1); MAGNESIUM 2.1 mg/dL (1.8-2.4)
[2024-07-08 08:59] LABS: CREATININE 1.1 mg/dL (0.55-1.3)
[2024-07-08 09:00] LABS: BILIRUBIN,TOTAL 1.2 mg/dL (0.2-1); TOT PROT 7.7 g/dl (6.4-8.2)
[2024-07-08] MEDS: LOSARTAN POTASSIUM 50 MG TABLET PO SCH (09:15)
[2024-07-08] MEDS: PANTOPRAZOLE 40 MG TABLET PO SCH (09:15)
[2024-07-08] MEDS: amLODIPine BESYLATE 10 MG TABLET (FP) PO SCH (09:15)
[2024-07-08] MEDS: ESCITALOPRAM OXALATE 10 MG TABLET PO SCH (09:15)
[2024-07-08] MEDS: FUROSEMIDE 20 MG TABLET (FP) PO SCH (09:15)
[2024-07-08] MEDS: CEFTRIAXONE 2 GM-D5W BAG 2 GM/50 ML BAG IVPB SCH (17:11)
[2024-07-09 08:10] LABS: ABSOLUTE IMMATURE GRANULOCYTES 0.03 x10^3/uL (0.0-0.031); BASOPHILS # 0.06 x10^3/uL (0.01-0.08); EOSINOPHILS # 0.34 x10^3/uL (0.04-0.36); HEMATOCRIT 40.1 % (34.1-44.9); HEMOGLOBIN 12.6 g/dL (11.2-15.7); MCHC 31.4 g/dl (32.2-35.5); MEAN CELL VOLUME 92.4 fl (79.4-94.8); MEAN PLT VOLUME 12.9 fl (9.4-12.3); MONOCYTE # 0.85 x10^3/uL (0.24-0.86); MONOCYTE % 7.5 % (4.7-12.5); PLATELET COUNT 300 x10^3/uL (182-369); RDW 15.2 % (12.4-16.6)
[2024-07-09 08:37] LABS: POTASSIUM 4.2 mmol/L (3.5-5.1)
[2024-07-09 08:43] LABS: ALBUMIN 3.6 g/dl (3.4-5.0); BLOOD UREA NITROGEN 13.1 mg/dL (7-18)
[2024-07-09 08:46] LABS: CREATININE 1.2 mg/dL (0.55-1.3)
[2024-07-09 08:48] LABS: BILIRUBIN,TOTAL 0.9 mg/dL (0.2-1); TOT PROT 7.4 g/dl (6.4-8.2)
[2024-07-09] MEDS: traMADol HCL 50 MG TABLET PO PRN (11:59)
[2024-07-09 18:06] LABS: IG A QN SERUM. 602 mg/dL (64-422)
[2024-07-09 23:07] LABS: PARATHYROID HORM INTACT 57 pg/mL (15-65)
[2024-07-10 08:41] LABS: HEMOGLOBIN 12.3 g/dL (11.2-15.7); MCHC 31.5 g/dl (32.2-35.5); MEAN CELL VOLUME 91.5 fl (79.4-94.8); PLATELET COUNT 287 x10^3/uL (182-369); RDW 14.9 % (12.4-16.6)
[2024-07-10 09:03] LABS: ALBUMIN 3.9 g/dl (3.4-5.0); BLOOD UREA NITROGEN 15.6 mg/dL (7-18); CALCIUM 10.3 mg/dL (8.5-10.1)
[2024-07-10 09:06] LABS: CREATININE 1.3 mg/dL (0.55-1.3)
[2024-07-10 09:08] LABS: BILIRUBIN,TOTAL 1.1 mg/dL (0.2-1); TOT PROT 7.8 g/dl (6.4-8.2)
[2024-07-10] MEDS: CEFUROXIME AXETIL 500 MG TABLET PO SCH (21:20)
[2024-07-10] MEDS: DOCUSATE SODIUM 100 MG CAPSULE (FP) PO PRN (21:20)
[2024-07-11 10:52] VITALS: BP 115/66; PULSE 78; RESP 17; TEMP 99
== END 2024-07-11 11:28 | disposition home or self-care (01) ==
LOC: JER 09:38 → JERBED 12:04 → UNDOADMOB 12:04 → INTOOBSV 12:04 → JERBED 14:32 → J6S 15:46
PROVIDERS: ADMIT Family Medicine; ATTEND Family Medicine
PROC: 3E03329 Introduction of Other Anti-infective into Peripheral Vein, Percutaneous Approach (ICD-10-PCS; principal; 2024-07-07)
PROC: 3E033NZ Introduction of Analgesics, Hypnotics, Sedatives into Peripheral Vein, Percutaneous Approach (ICD-10-PCS; 2024-07-07)
PROC: 3E023GC Introduction of Other Therapeutic Substance into Muscle, Percutaneous Approach (ICD-10-PCS; 2024-07-07)
PROC: 3E013VG Introduction of Insulin into Subcutaneous Tissue, Percutaneous Approach (ICD-10-PCS; 2024-07-07)
PROC: 3E0337Z Introduction of Electrolytic and Water Balance Substance into Peripheral Vein, Percutaneous Approach (ICD-10-PCS; 2024-07-07)
DX: R79.89 Other specified abnormal findings of blood chemistry (principal); M54.9 Dorsalgia, unspecified; Z71.89 Other specified counseling; R62.51 Failure to thrive (child); E11.65 Type 2 diabetes mellitus with hyperglycemia; N39.0 Urinary tract infection, site not specified; I50.9 Heart failure, unspecified; R74.8 Abnormal levels of other serum enzymes; G20.A1 Parkinson's disease without dyskinesia, without mention of fluctuations; F31.9 Bipolar disorder, unspecified; E11.9 Type 2 diabetes mellitus without complications; I11.0 Hypertensive heart disease with heart failure; Z87.440 Personal history of urinary (tract) infections; G89.29 Other chronic pain; M54.50 Low back pain, unspecified
CPT/HCPCS: 0241U-QW; 36415; 71045-TC-FY; 72110-TC-FY; 72141-TC; 80053; 81003; 82010; 82607; 82728; 82784; 82803; 82962; 82977; 83036; 83735; 83880; 83970; 84100; 84155; 84165; 84443; 84484; 85025; 85027; 87086; 93005; 93010; 96365; 96366; 96372; 96375; 97161-GP; 99285-25; G0378; J0131; J1644